=== PATIENT | female | born 1965 | race Caucasian/White ===

== ENCOUNTER → 2020-11-30 08:56 | Outpatient (CLI) | payer OTHER, SELFPAY ==
--- NOTE | ~2020-11-30 | MR_ITS ---
EXAMINATION: MR cervical spine wo con DATE: 11/30/2020 09:38 INDICATION: Neck pain. TECHNIQUE: Magnetic resonance imaging (MRI) of the cervical spine was performed without intravenous c ontrast. Sequences included sagittal T2-weighted FSE, sagittal STIR FSE, sagittal T1-weighted FSE, ax ial MERGE, and axial T2-weighted FSE. COMPARISON: None FINDINGS: Bone alignment is normal. Vertebral body heights are normal. There is moderately decreased disc height at C5-C6 and C6-7 C7 with endplate remodeling. The spinal cord signal intensity is normal . The following disc levels are specifically discussed: C2-C3: The disc does not extend beyond the endplate margin. There is mild left uncovertebral joint os teoarthritis. There is mild bilateral facet joint osteoarthritis. There is no neural foraminal stenos is. There is no central canal stenosis. C3-C4: The disc does not extend beyond the endplate margin. There is no uncovertebral joint osteoarth ritis. There is severe bilateral facet joint osteoarthritis. There is mild left neural foraminal sten osis. There is no central canal stenosis. C4-C5: The disc does not extend beyond the endplate margin. There is mild bilateral uncovertebral deonte nt osteoarthritis. There is severe bilateral facet joint osteoarthritis. There is mild bilateral neur al foraminal stenosis. There is no central canal stenosis. C5-C6: The disc is bulging. There is severe bilateral uncovertebral joint osteoarthritis. There is se micheline bilateral facet joint osteoarthritis. There is mild right neural foraminal stenosis. There is mi ld central canal stenosis. C6-C7: The disc is bulging. There is severe bilateral uncovertebral joint osteoarthritis. There is mo derate bilateral facet joint osteoarthritis. There is mild left neural foraminal stenosis. There is m ild central canal stenosis. C7-T1: The disc does not extend beyond the endplate margin. There is no uncovertebral joint osteoarth ritis. There is severe right and moderate left facet joint osteoarthritis. There is mild bilateral ne ural foraminal stenosis. There is no central canal stenosis. IMPRESSION: 1. Moderate cervical spondylosis. Reviewed, dictated and finalized at location A.
== END ==
PROVIDERS: PCP Internal Medicine; Visit Provider Physician Assistant Medical
DX: M47.892 Other spondylosis, cervical region (principal)
CPT/HCPCS: 72141

== ENCOUNTER 2022-10-17 16:06 | Outpatient (CLI) | payer OTHER, SELFPAY ==
--- NOTE | ~2022-10-17 | CT_ITS ---
EXAMINATION:CT diagnostic chest w con DATE: 10/17/2022 16:42 INDICATION: Lung nodule. TECHNIQUE: Computed tomography (CT) of the chest was performed with 75 mL Omnipaque 350 intravenous c ontrast. Automated exposure control and iterative reconstruction technique were employed. The dose-le ngth product (DLP) was 189.10 mGy-cm. COMPARISON: CT abdomen and pelvis 10/07/2011 FINDINGS: There is mild atelectasis bilaterally. There are multiple scattered nodules in the lungs me asuring up to 5 mm on the right. No pleural effusion. The heart size is normal. No pericardial effusi on. There is a large sliding hiatal hernia. There are changes of cholecystectomy. There is cortical t hinning of the kidneys. There are old healed right rib fractures. There is mild thoracic spondylosis and at least moderate cervical spondylosis. IMPRESSION: 1. Pulmonary nodules measuring up to 5 mm, likely benign. 2. Large sliding hiatal hernia. Reviewed, dictated and finalized at location A. 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
[2022-10-17 16:34] LABS: Estimated Glomerular Filt Rate > 60
== END 2022-10-17 16:07 | disposition home or self-care (01) ==
LOC: ANHIMG 16:07
PROVIDERS: PCP Physician Assistant Medical; Visit Provider Internal Medicine Hematology & Oncology
DX: K44.9 Diaphragmatic hernia without obstruction or gangrene (principal); R91.8 Other nonspecific abnormal finding of lung field
CPT/HCPCS: 71260; Q9967

== ENCOUNTER 2023-02-24 01:47 | Day surgery (SDC) | payer OTHER, SELFPAY ==
[2023-02-19 12:50] VITALS: BMI 28.4
--- NOTE | 2023-02-24 07:37 | WPDANESEPPF ---
Anes - Initial Pre Proc Eval Procedure: Operation Date: 02/24/23 14:00 Proposed Procedures p Colonoscopy - Nathen Bear MD Date/Time: 02/24/23 07:37 Surgeon: Nathen Bear MD Pre Op Diagnosis: positive cologuard Patient Data Age: 57 Gender: F Height: 1.55 m Weight: 68.2 kg Allergies Allergy/AdvReac Type Severity Reaction Status Date / Time lisinopril AdvReac Cough Verified 02/24/23 12:50 Home Medications Medication Instructions Recorded Confirmed Type naproxen 500 mg tablet 500 mg PO BID #60 tabs 12/02/22 02/19/23 Rx levothyroxine 88 mcg tablet 88 mcg PO DAILY #90 tabs 01/13/23 02/19/23 Rx bupropion HCl 150 mg 24 hr tablet, 150 mg PO QAM #90 tabs 01/22/23 02/19/23 Rx extended release (Wellbutrin XL) cyclobenzaprine 5 mg tablet See Rx Instructions PO Q8H PRN 01/22/23 02/19/23 Rx muscle spasm #20 tabs hydroxyzine HCl 25 mg tablet 25 mg PO BID PRN anxiety #60 tabs 01/22/23 02/19/23 Rx escitalopram oxalate 20 mg tablet 20 mg PO DAILY #90 tabs 02/13/23 02/19/23 Rx (Lexapro) Calcium 600 + D(3) 1 tab-cap PO DAILY 02/19/23 02/19/23 History Vitamin D3 10,000 units PO DAILY 02/19/23 02/19/23 History cyanocobalamin (vitamin B-12) 1,000 mcg PO DAILY 02/19/23 02/19/23 History 1,000 mcg capsule magnesium 200 mg tablet 200 mg PO DAILY 02/19/23 02/19/23 History omeprazole magnesium 20 mg 20 mg PO DAILY 02/19/23 02/19/23 History tablet,delayed release (Prilosec OTC) losartan 50 mg tablet 50 mg PO DAILY #90 tabs 02/27/23 Rx metoprolol succinate 25 mg 25 mg PO DAILY #90 tabs 02/27/23 Rx tablet,extended release 24 hr Patient hx anesthesia problems: none Family hx anesthesia problems: none Results Review: All pre-operative results and documents have been reviewed as part of the pre-operative evaluation. [facility] Past Medical History Medical History (Updated 02/21/23 @ 15:00 by Hamzah Pace DO) Anxiety Axillary lymphadenopathy left, noted on CT Breast cancer screening by mammogram Cervicalgia of cfsathgz-eseopdy-jhdeu region Depression GERD (gastroesophageal reflux disease) Hypertension Hypothyroidism Rheumatoid arthritis Surgical History Surgical History (Updated 02/21/23 @ 15:00 by Hamzah Pace DO) History of cholecystectomy Social History Social History Smoking status: Never smoker Alcohol intake: current Alcohol use details: social Substance use: never Substance use type: does not use Living arrangements: with family Occupation/Education: occupation Gender identity (if verbalized by the patient): Female Spiritual care concerns: No Anes - Eval Final PreProcedure Day of Procedure 02/24/23 07:37 Patient weight: overweight Heart: regular rate and rhythm Lungs: clear to auscultation Airway: Mallampati scale class II Neurological: alert and oriented Last oral intake: >/= 8 hours ASA classification: III Emergent: no Anesthetic plan: proceed Anesthesia type and monitoring: general GIVS and standard monitoring Results Review: All pre-operative results and documents have been reviewed as part of the pre-operative evaluation. Informed Consent: The patient's anesthetic plan and its attendant risks and benefits were discussed with the patient/family/POA. Questions were solicited and answers provided to the satisfaction of the patient/family/POA.
[2023-02-24] MEDS: LACTATED RINGERS 1,000 ML 150 ML IV CONT (12:57)
[2023-02-24 12:58] VITALS: BP 131/97; PULSE 93; RESP 16; TEMP 36.8; O2SAT 97
--- NOTE | 2023-02-24 13:01 | PM.HPGS ---
History of Present Illness History of Present Illness Consent: Risks, benefits, and alternatives have been discussed and questions answered. Patient agrees to proceed with procedure. Chief complaint: positive cologuard Narrative: Cindy Woodard is a 57 year old female Presents for screening colonoscopy. Patient's current weight appetite bowel movements are normal. She denies abdominal pain. Patient has had no bleeding. Family history noncontributory. Recent Cologuard test was performed and found to be positive. [facility] Past Medical History Medical History (Updated 02/21/23 @ 15:00 by Hamzah Pace DO) Anxiety Axillary lymphadenopathy left, noted on CT Breast cancer screening by mammogram Cervicalgia of ofnxzhpo-qlxkaqc-ycbam region Depression GERD (gastroesophageal reflux disease) Hypertension Hypothyroidism Rheumatoid arthritis Surgical History Surgical History (Updated 02/21/23 @ 15:00 by Hamzah Pace DO) History of cholecystectomy Social History Social History Smoking status: Never smoker Alcohol intake: current Alcohol use details: social Substance use: never Substance use type: does not use Living arrangements: with family Occupation/Education: occupation Gender identity (if verbalized by the patient): Female Spiritual care concerns: No Meds Home Medications and Allergies Home Medications Medication Instructions Recorded Confirmed Type losartan 50 mg tablet 50 mg PO DAILY #90 tabs 09/02/22 02/19/23 Rx metoprolol succinate 25 mg 25 mg PO DAILY #90 tabs 09/02/22 02/19/23 Rx tablet,extended release 24 hr naproxen 500 mg tablet 500 mg PO BID #60 tabs 12/02/22 02/19/23 Rx levothyroxine 88 mcg tablet 88 mcg PO DAILY #90 tabs 01/13/23 02/19/23 Rx bupropion HCl 150 mg 24 hr tablet, 150 mg PO QAM #90 tabs 01/22/23 02/19/23 Rx extended release (Wellbutrin XL) cyclobenzaprine 5 mg tablet See Rx Instructions PO Q8H PRN 01/22/23 02/19/23 Rx muscle spasm #20 tabs hydroxyzine HCl 25 mg tablet 25 mg PO BID PRN anxiety #60 tabs 01/22/23 02/19/23 Rx escitalopram oxalate 20 mg tablet 20 mg PO DAILY #90 tabs 02/13/23 02/19/23 Rx (Lexapro) Calcium 600 + D(3) 1 tab-cap PO DAILY 02/19/23 02/19/23 History Vitamin D3 10,000 units PO DAILY 02/19/23 02/19/23 History cyanocobalamin (vitamin B-12) 1,000 mcg PO DAILY 02/19/23 02/19/23 History 1,000 mcg capsule magnesium 200 mg tablet 200 mg PO DAILY 02/19/23 02/19/23 History omeprazole magnesium 20 mg 20 mg PO DAILY 02/19/23 02/19/23 History tablet,delayed release (Prilosec OTC) Allergies Allergy/AdvReac Type Severity Reaction Status Date / Time lisinopril AdvReac Cough Verified 02/24/23 12:50 Vital Signs Vital Signs - 24 hr 02/24/23 12:58 Temperature 98.2 F Pulse Rate 93 Respiratory Rate 16 Blood Pressure 131/97 H Pulse Oximetry 97 Oxygen Delivery Room Air Exam Narrative: Physical exam reveals patient to be alert. Vital signs stable. HEENT exam is unremarkable. Patient is anicteric. Lungs are clear to auscultation and percussion. Heart is without murmur or extra sounds. Abdomen bowel sounds are present soft nontender with no organomegaly. Digital external rectal exam normal. Assessment and Plan Assessment and plan (1) Positive colorectal cancer screening using Cologuard test: Code(s): R19.5 - Other fecal abnormalities Status: Acute Assessment and Plan: Patient's Cologuard test was positive. Plan for screening colonoscopy to assess. Further recommendations may be given after endoscopy.
[2023-02-24] MEDS: SIMETHICONE ORAL SUSPENSION 20 MG/0.3 ML 30 ML BOTTLE 0.6 ML IRRIGATION (14:17)
[2023-02-24 14:27] VITALS: BP 134/87; PULSE 87; RESP 23; O2SAT 100
[2023-02-24 14:37] VITALS: BP 128/85; PULSE 87; RESP 23; O2SAT 100
[2023-02-24 14:47] VITALS: BP 137/87; PULSE 78; RESP 18; O2SAT 100
== END 2023-02-24 15:00 | disposition home or self-care (01) ==
PROVIDERS: PCP Physician Assistant Medical; Visit Provider Internal Medicine Gastroenterology
PROC: 0DJD8ZZ Inspection of Lower Intestinal Tract, Via Natural or Artificial Opening Endoscopic (ICD-10-PCS; CPT 45378; principal; 2023-02-24 14:00)
DX: Z12.11 Encounter for screening for malignant neoplasm of colon (principal); K64.8 Other hemorrhoids; R19.5 Other fecal abnormalities; I10 Essential (primary) hypertension; E03.9 Hypothyroidism, unspecified; M06.9 Rheumatoid arthritis, unspecified; F32.A Depression, unspecified; F41.9 Anxiety disorder, unspecified; K21.9 Gastro-esophageal reflux disease without esophagitis
CPT/HCPCS: 45378; J2704; J7120

== ENCOUNTER 2024-11-30 10:21 | Outpatient (CLI) | payer OTHER, SELFPAY ==
--- NOTE | ~2024-11-30 | US_ITS ---
EXAMINATION: US_BCALIMG_US DATE: 11/30/2024 12:09 INDICATION: Aspiration requested of a and cystic lesion at the left axilla. TECHNIQUE: The procedure including the risks and benefits was discussed with the patient. Risks discu ssed included bleeding bleeding, infection and allergic reaction oral and written consent were obtain ed. The skin overlying the left axilla was prepped and draped in usual sterile fashion. Anesthetic w as administered with 1% lidocaine subcutaneously. Initially a 5Fr catheter with trochar was inserted into the fluid collection utilizing ultrasound guidance. A minimal amount of fluid was able to be asp irated. The catheter was removed and a 18 Fr spinal needle was advanced into the fluid collection wit h ultrasound guidance. A small amount of opaque yellowish callahan-colored fluid was aspirated and sent to lab for Gram stain and cultures. The needle was removed and a sterile bandage was applied. There wer e no immediate complications. FINDINGS: There is a 6.2 x 1.2 x 2.1 cm anechoic fluid collection at the left axilla. There are a few adjacent mildly prominent but still normal-sized and likely reactive left axillary lymph nodes measu ring up to 1 cm in maximal short axis diameter. Ultrasound images demonstrate the initially the nikolas ter and subsequently the 18-gauge needle tip within the fluid collection. The fluid was very viscous and only 3 mL was able to be aspirated. IMPRESSION: 1. Successful ultrasound-guided aspiration of a portion of 6.2 x 1.2 x 2.1 cm loculated left axillary fluid collection. 2. 3 mL of purulent appearing opaque yellowish aspirated fluid was sent to the lab for Gram stain and cultures. Reviewed, dictated and finalized at location A. IMPRESSION: 1. Successful ultrasound-guided aspiration of a portion of 6.2 x 1.2 x 2.1 cm l oculated left axillary fluid collection. 2. 3 mL of purulent appearing opaque yellowish aspirated fluid was sent to the lab for Gram stain and cultures.
--- OUTSIDE RECORDS SUMMARY | 2024-11-30 11:42 | XMS_ITS | Clinical Summary ---
Author Organization [facility] Address [address] [address] Care Team Providers Care Collar Fuser Name Role Phone Jaden Carter MD Primary Care Provider [phone] Allergies No known active allergies Medications buPROPion XL (WELLBUTRIN XL) 150 mg 24 hr tabletIndicatio ns:Anxiety with Depression Take 1 tablet (150 mg total) by mouth every morning 1 Active cyanocobalamin (Vitamin B-12) 100 mcg tabletIndicatio ns:Prevention of Vitamin B12 Deficiency Take 250 mcg by mouth every morning Active folic acid (FOLVITE) 1 mg tabletIndicatio ns:supplement Take 1 tablet (1 mg total) by mouth every morning 7 Active levothyroxine (SYNTHROID) 88 mcg tabletIndicatio ns:hypothyroidi sm Take 1 tablet (88 mcg total) by mouth 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 Active metoprolol XL (TOPROL-XL) 25 mg extended release tabletIndicatio ns:hypertension Take 1 tablet (25 mg total) by mouth every morning Active cholecalciferol (VITAMIN D-3) 25 mcg (1,000 unit) tabletIndicatio ns:Vitamin D Deficiency Take 1 tablet (1,000 Units total) by mouth every morning Active docusate sodium (COLACE) 100 mg capsuleIndicati ons:constipatio n Take 1 capsule (100 mg total) by mouth 2 (two) times a day HOLD if having diarrhea or loose stools 30 capsule 1 1 Active Additional Information Patient not taking.Reported on 07/23/2021 desvenlafaxine ER 50 mg 24 hr tablet 1 Active hydrOXYzine (VISTARIL) 25 mg capsule daily as needed 1 Active mupirocin (BACTROBAN) 2 % ointmentIndicat ions:Multiple wounds of skin Apply topically 2 (two) times a day 22 g 4 Active Active Problems Problem Noted Date Diagnosed Date Left shoulder pain 12/11/2020 Traumatic complete tear of left rotator cuff Overview (12/11/2020): Added automatically from request for surgery [id number] External hemorrhoids 03/24/2017 Rash and other nonspecific skin eruption 015 Rheumatoid arthritis 06/29/2015 Overview (02/05/2021): Seropositive, non erosive Other specified disorders of bone density and structure, unspecified site 08/15/2014 Other long term care phlebotomist (current) drug therapy 4 Rheumatoid nodule 04/11/2014 Hypothyroidism 12/07/2013 Encounter for therapeutic drug level monitoring 05/18/2013 Osteoarthritis 08/24/2012 Overview (02/05/2021): OA of the cervical spine and bilateral shoulders Surgical History Surgery Date Site/Laterality Comments CHOLECYSTECTOMY 09/15/2005 - 09/14/2006 ROTATOR CUFF REPAIR Medical History Medical History Date Comments Depression Hypothyroid HTN (hypertension) Family History Medical History Relation Name Comments Alcohol abuse Father Cancer Mother Diabetes Mother Heart disease Mother Hypertension Mother Lung disease Mother Family history of lung disease - (Added by TW Conv) Mental illness Son Anesthesia problems Neg Hx Relation Name Status Comments Father Mother Son Social History Tobacco Use Types Packs/Day Years Used Date Smoking Tobacco: Never Smokeless Tobacco: Never AUDIT-C Answer Date Recorded Q1: How often do you have a drink containing alc ohol? 2-4 times a month 12/12/2020 Q2: How many drinks containi ng alcohol do you have on a typical day when you are drinking? 1 or 2 12/12/2020 Q3: How often do you have si x or more drinks on one occasion? 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 Not on file Not on file Obstetrics History Last Filed Vital Signs Vital Sign Reading Time Taken Comments Blood Pressure 146/78 05/18/2024 12:39 PM CDT Pulse 76 05/18/2024 12:39 PM CDT Temperature 36.9 C (98.4 F) 05/18/2024 12:39 PM CDT Respiratory Rate 20 05/18/2024 12:39 PM CDT Oxygen Saturation 98% 05/18/2024 12:39 PM CDT Inhaled Oxygen Concentration - - Weight 80.4 kg (177 lb 4.8 oz) 05/18/2024 12:39 PM CDT Height 165.1 cm (5' 5 ) 05/18/2024 12:39 PM CDT Body Mass Index 29.5 05/18/2024 12:39 PM CDT Plan of Treatment Health Maintenance Due Date Last Done Comments Cervical Cancer Screening 1964 Colon Cancer Screening-Colonoscopy 1964 Depression Screening 1964 Hepatitis C Screening 1964 Hepatitis B Screening 1982 Regular Well Visit/Exam 18-64 1982 Zoster Vaccine (1 of 2) 2014 Breast Cancer Screening-Mammogram 06/26/2023 06/26/2022, 06/26/2022 Influenza Vaccine (#1) 2024 06/26/2015 DTaP/Tdap/Td Vaccine (2 - Td or Tdap) 06/28/2026 06/28/2016 Pneumococcal vaccine <65 Aged Out No longer eligible based on patient's age to complete this topic Medical Devices Implanted Type Area Barber Stylist Device Identifier Shelf Expiration Date Model / Serial / Lot [employer] [id number] [place] Suture Compositcp Broadband Od4.5mm 2 Load Slide Tape Knotless Thread - [id number] Implanted:Qty: 1 on 12/26/2020 by Jens Cook MD at [facility] Left: Shoulder [employer] 03/15/2021 [id number] / / [id number] [employer] [id number] [place] Suture Compositcp Broadband Od4.5mm 2 Load Slide Tape Knotless Thread - [id number] Implanted:Qty: 1 on 12/26/2020 by Jens Cook MD at [facility] Left: Shoulder [employer] 03/15/2021 [id number] / / [id number] [employer] [id number] Quattro Link 4.5mm 1 Row Knotless Self Punch Unique Eyelet [place] - S00 - [id number] Implanted:Qty: 1 on 12/26/2020 by Jens Cook MD at [facility] Left: Shoulder [employer] 12/30/2024 [id number] / 00 / [id number] [employer] [id number] Quattro Link 4.5mm 1 Row Knotless Self Punch Unique Eyelet [place] - S00 - [id number] Implanted:Qty: 1 on 12/26/2020 by Jens Cook MD at [facility] Left: Shoulder [employer] 12/30/2024 [id number] / 00 [id number] [employer] [id number] Jugger[employer]not Maxbraid 2.9mm 2 Loaded Soft Tapered Needle 2 [place] - S00 - [id number] Implanted:Qty: 1 on 12/26/2020 by Jens Cook MD at [facility] Left: Shoulder [employer] 06/07/2025 [id number] / 00 / [id number] [place] [address] [facility] PPO [facility] [address] PPO Care Teams Collar Fuser Relationship Specialty Start Date End Date Jaden Carter MD [address] [place], [place] [id number] PCP - General Internal Medicine 12/04/20
--- OUTSIDE RECORDS SUMMARY | 2024-11-30 11:42 | XMS_ITS | Clinical Summary ---
Author Organization [facility] Tony Lopez Address [address] [place] [address] Care Team Providers Care Web Applications Developer Name Role Phone Unavailable Primary Care Provider Unavailabl e Medications metoprolol succinate (TOPROL XL) 25 mg Extended Release 24 hour tablet TAKE 1/2 (ONE-HALF) TABLET BY MOUTH ONCE DAILY IN THE MORNING AND 1 AT BEDTIME 2 Active levothyroxine 88 mcg tablet TAKE 1 TABLET BY MOUTH ONCE DAILY ONE HOUR BEFORE BREAKFAST 2 Active losartan (COZAAR) 50 mg tablet Take 50 mg by mouth daily. 2 Active escitalopram oxalate (LEXAPRO) 10 mg tablet Take 10 mg by mouth daily. 2 Active buPROPion HCL (WELLBUTRIN XL) 150 mg Extended Release 24 hour tablet Take 150 mg by mouth. 1 Active naproxen (NAPROSYN) 500 mg tablet Take 500 mg by mouth 2 times daily. 2 Active cyclobenzaprine (FLEXERIL) 10 mg tablet Take 10 mg by mouth 3 times daily as needed for Spasm. Active Active Problems No known active problems Social History Tobacco Use Types Packs/Day Years Used Date Smoking Tobacco: Never Smokeless Tobacco: Never Tobacco Cessation:Counseling Given: Not Answered Alcohol Use Standard Drinks/Week Comments Yes 2 (1 standard drink = 0.6 oz pur e alcohol) Comments Unknown Sex and Gender Information Value Date Recorded Sex Assigned at Not on file Legal Sex Female 9:28 AM CDT Gender Identity Not on file Sexual Orientation Not on file Last Filed Vital Signs Vital Sign Reading Time Taken Comments Blood Pressure 146/93 07/12/2022 1:31 PM CDT Pulse 65 07/12/2022 1:31 PM CDT Temperature 36.6 C (97.8 F) 07/12/2022 1:31 PM CDT Respiratory Rate 16 07/12/2022 1:31 PM CDT Oxygen Saturation 95% 07/12/2022 1:31 PM CDT Inhaled Oxygen Concentration - - Weight 75.5 kg (166 lb 8 oz) 07/12/2022 1:31 PM CDT Height 157.5 cm (5' 2 ) 07/12/2022 1:31 PM CDT Body Mass Index 30.45 07/12/2022 1:31 PM CDT Plan of Treatment Health Maintenance Due Date Last Done Comments DTAP/TDAP/TD VACCINES (1 - Tdap) 1983 CERVICAL CANCER SCREENING 1994 BREAST CANCER SCREENING 2004 COLORECTAL SCREENING 2009 Colorectal Cancer Screening 2009 FIT-DNA Q 3 years 2009 FIT/FOBT Q 1 year 2009 Flex Sig/CT Colonography Q 5 years 2009 ZOSTER VACCINE (1 of 2) 2014 INFLUENZA VACCINE (#1) 2024 06/26/2015 COVID-19 Vaccine (2 - 2023-2 5 season) 2024 09/26/2021 RSV VACCINE (60+ or ) (1 - 1-dose 75+ series) 2039 HEPATITIS B VACCINES Aged Out No long er eligible based on patient's age to complete this topic Insurance
--- OUTSIDE RECORDS SUMMARY | 2024-11-30 11:42 | XMS_ITS | Encounter Summary ---
Author Organization [facility] Healthcare Address [address] [place] [address] Care Team Providers Care Sales Teacher Name Role Phone Unknown, Beverlynfnoé Primary Care Provider Jaden Sepulveda MD Primary Care Provider [phone] Encounter Details Date Type Department Care Team (Late st Contact Info) Description 10/18/2020 Telephone [facility] [id number] [place] [address] Sushila Marley, RT Social History Tobacco Use Types Packs/Day Years Used Date Smoking Tobacco: Never Comments Unknown Sex and Gender Information Value Date Recorded Sex Assigned at Not on file 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 04/16/2022 04/17/2022 08/14/2022 3:[address] COVID: Suspected 07/30/2022 07/31/2022 07/31/2022 3:05 AM MAINTENANCE DEPARTMENT MANAGER COVID: Suspected 07/31/2022 07/31/2022 08/01/2022 3:05 AM MAINTENANCE DEPARTMENT MANAGER COVID: Suspected 07/31/2022 07/31/2022 08/01/2022 5:48 AM MAINTENANCE DEPARTMENT MANAGER documented as of this encounter Care Teams Sales Teacher Relationship Specialty Start Date End Date Unknown, Notinfile PCP - General 07/10/17 12/03/20 Jaden Carter MD [address] [place] [id number] PCP - General Internal Medicine 12/04/20 documented as of this encounter
--- OUTSIDE RECORDS SUMMARY | 2024-11-30 11:42 | XMS_ITS | Clinical Summary ---
Author Organization [facility] Address [address] [place] [address] Care Team Providers Care Loader Name Role Phone Jaden Carter MD Primary Care Provider [phone] Source Comments [facility],non-owned Affiliates and Associated Physician Practices is amultiple site organization consisting of ambulatory clinics and hospital sitesin [place], [place], [place] and [place]. This disclosure is being madepursuant to the Care Everywhere program and may not contain all information available regarding this patient. Last updated 18.[facility] Allergies No known active allergies Medications * Be aware that medications may not be up to date on this document. Alwaysverify current medications with the patient. Medication Sig Dispensed Refills Start Date End Date Status naproxen (NAPROSYN) 500 MG tablet 60 tablet 3 06/12/2016 Active buPROPion XL 24hr (Wellbutrin-XL) 150 MG tablet Take 1 (one) tablet by mouth every morning 01/22/2023 Active escitalopram (Lexapro) 20 MG tablet Take 1 (one) tablet by mouth once daily 02/13/2023 Active metoprolol succinate XL 24hr (Toprol XL) 25 MG tablet Take 1 (one) tablet by mouth once daily 02/27/2023 Active losartan (Cozaar) 50 MG tablet Take 1 (one) tablet by mouth once daily 02/27/2023 Active levothyroxine (Synthroid) 88 MCG tablet Take 1 (one) tablet by mouth once daily 01/13/2023 Active Cholecalciferol (Vitamin D3) 250 MCG (10522 UT) Take 250 mg by mouth once daily Active Magnesium 200 MG TABS Take 200 mg by mouth once daily Active Calcium Carb-Cholecalcifero l (Calcium 600+D) 600-10 MG-MCG Take 1 (one) tablet by mouth 2 times daily Active OMEPRAZOLE PO Take 20 mg by mouth once daily Active folic acid (Folvite) 1 MG tablet Take 1 (one) tablet by mouth once daily 90 tablet 4 04/06/2024 Active methotrexate 2.5 MG tablet Take 1 (one) tablet by mouth every 7 days 6 Tablets once a week Active diclofenac sodium EC (Voltaren) 75 MG tablet Take 1 (one) tablet by mouth 2 times daily 180 tablet 1 09/21/2024 03/20/2025 Active Active Problems Problem Noted Date Diagnosed Date Rheumatoid arthritis 06/29/2015 Overview (12/15/2017): Seropositive, non erosive Rash and other nonspecific skin eruption 015 Other specified disorders of bone density and structure, unspecified site 08/15/2014 Rheumatoid nodule 04/11/2014 Other intermission coordinator (current) drug therapy 4 Hypothyroidism 12/07/2013 Encounter for therapeutic drug level monitoring 05/18/2013 Osteoarthritis 08/24/2012 Overview (12/15/2017): OA of the cervical spine and bilateral shoulders Encounters Date Type Department Care Team Description 10/22/2024 Orders Only [facility] - Rheumatology [address] [place] [address] Christiano Castanon MD Rheumatoid arthritis involving multiple joints (HCC); Therapeutic drug monitoring 09/28/2024 Lab Requisition [facility] - DermPath Lab [address] [place] [address] Gala Venegas MD 09/25/2024 11:14 AM CHEMICAL ETCH OPERATOR - 09/25/2024 11:59 PM CHEMICAL ETCH OPERATOR Hospital Encounter [facility] MRI [address] [place] [address] Omi Shelby MD Discharge Disposition: Home or Self Care 09/25/2024 11:14 AM CHEMICAL ETCH OPERATOR - 09/25/2024 11:59 PM CHEMICAL ETCH OPERATOR Hospital Encounter [facility] MRI [address] [place] [address] Omi Shelby MD Discharge Disposition: Home or Self Care 09/25/2024 Travel 09/21/2024 4:18 PM CHEMICAL ETCH OPERATOR - 09/21/2024 11:59 PM CHEMICAL ETCH OPERATOR Hospital Encounter [facility] DIAGNOSTIC RAD OP [address] [place] [address] Christiano Castanon MD Discharge Disposition: Home or Self Care 09/21/2024 3:20 PM CHEMICAL ETCH OPERATOR Office Visit [facility] - Rheumatology [address] [place] [phone] Christiano Castanon MD Rheumatoid arthritis involving multiple joints (HCC) (Primary Dx); Osteoarthritis of hand, unspecified laterality, unspecified osteoarthritis type; Therapeutic drug monitoring 09/21/2024 Travel 09/17/2024 Telephone [facility] - Rheumatology [address] [place] [phone] Christiano Castanon MD Pain 09/17/2024 Telephone [facility] - Rheumatology [address] [place] [phone] Jasbir Sofia MD Pain 09/17/2024 Telephone [facility] - Rheumatology [address] [place] [phone] Jasbir Sofia MD General 09/13/2024 12:42 PM CHEMICAL ETCH OPERATOR - 09/13/2024 11:59 PM CHEMICAL ETCH OPERATOR Hospital Encounter [facility] [address] [place] [address], [address] [place] [address] Omi Shelby MD Neurology Discharge Disposition: Home or Self Care 09/01/2024 2:00 PM CHEMICAL ETCH OPERATOR Office Visit [facility] [address] [place] [address] [address] [place] [address] Wang Herrera MD Singh, Niranjan N, MD Neck pain (Primary Dx); Ataxia; Weakness of right hand from Last 3 Months Immunizations Name Administration Dates Next Due INFLUENZA VACCINE, TRIV. (AF LURIA, FLUZONE TRIVALENT; 6MO+) (IIV3) 06/26/2015 Family History Medical History Relation Name Comments Arthritis - Rheumatoid Maternal Grandmother Cancer Maternal Grandmother COPD - Chronic Obstructive Pulmonary Disease Mother Cancer Mother Depression Mother Diabetes Mother Early Mother Heart Disease Mother Hypertension Mother Relation Name Status Comments Maternal Grandmother Mother Social History Tobacco Use Types Packs/Day Years Used Date Smoking Tobacco: Never Smokeless Tobacco: Never Tobacco Cessation:Counseling Given: Not Answered Alcohol Use Standard Drinks/Week Comments Yes 0 (1 standard drink = 0.6 oz pur e alcohol) PHQ-2 Answer Date Recorded Patient Health Questionnaire-2 Score 3 09/21/2024 Sex and Gender Information Value Date Recorded Sex Assigned at Not on file Gender Identity Female 03/29/2024 2:36 PM CDT Sexual Orientation Not on file Last Filed Vital Signs Vital Sign Reading Time Taken Comments Blood Pressure 135/89 09/21/2024 3:37 PM CHEMICAL ETCH OPERATOR Pulse 81 09/21/2024 3:37 PM CHEMICAL ETCH OPERATOR Temperature 36.8 C (98.2 F) 09/21/2024 3:37 PM CHEMICAL ETCH OPERATOR Respiratory Rate 18 07/09/2016 2:42 PM CDT Oxygen Saturation 96% 09/21/2024 3:37 PM CHEMICAL ETCH OPERATOR Inhaled Oxygen Concentration - - Weight 80.7 kg (178 lb) 09/21/2024 3:37 PM CHEMICAL ETCH OPERATOR Height 157.5 cm (5' 2 ) 09/21/2024 3:37 PM CHEMICAL ETCH OPERATOR Body Mass Index 32.56 09/21/2024 3:37 PM CHEMICAL ETCH OPERATOR Plan of Treatment Upcoming Encounters Date Type Department Care Team (Late st Contact Info) Description 12/13/2024 1:00 PM CDT Office Visit [facility] - Rheumatology [address] [place] [address], [place] [phone] Jasbir Sofia MD [address] [place] [address] [place] [phone] Health Maintenance Due Date Last Done Comments COLOGUARD (AGES 45-75) - COLON CA SCREENING 1964 COLON MONITORING 1964 COLONOSCOPY - COLON CA SCREENING 1964 CT COLONOGRAPHY - COLON CA SCREENING 1964 Colorectal Cancer Screening 1964 FIT - COLON CA SCREENING 1964 FLEX SIG - COLON CA SCREENING 1964 LIPID TESTING 1964 PAP SMEAR 1964 HIV SCREENING 1979 DTAP/TDAP/TD VACCINES (1 - Tdap) 1983 PNEUMOCOCCAL VACCINE 50+ (1 of 1 - PCV) 2014 ZOSTER VACCINE (1 of 2) 2014 COVID-19 VACCINE (2 - season) 2024 09/26/2021 INFLUENZA VACCINE (#1) 2024 06/26/2015 Respiratory Syncytial Virus (RSV) Vaccine Pt: or over 60 yrs (1 - Risk 60-74 years 1-dose series) 2024 MAMMOGRAM 06/26/2024 06/26/2022, 06/26/2022 SCREENING FOR DIABETES 11/02/2027 , 09/22/2024, 09/06/2024, Additional history exists HEPATITIS C SCREENING Completed 04/03/2023, 012 DEPRESSION SCREENING Completed 09/21/2024, 03/29/2024, 04/03/2023 HEPATITIS B VACCINE Aged Out No longe r eligible based on patient's age to complete this topic HIB VACCINE Aged Out No longer eligi ble based on patient's age to complete this topic HPV VACCINE Aged Out No longer eligi ble based on patient's age to complete this topic MENINGOCOCCAL (Group B) VACCINE SHARED DECISION-MAKING Aged Out No longer eligible based on patient's age to complete this topic MENINGOCOCCAL GROUPS A/C/Y/W VACCINE Aged Out No longer eligible based on patient's age to complete this topic Procedures Procedure Name Priority Date/Time Associated Diagnosis Comments ERYTHROCYTE SEDIMENTATION RATE Routine 11/02/2024 1:58 PM CHEMICAL ETCH OPERATOR Rheumatoid arthritis involving multiple joints (HCC) Therapeutic drug monitoring C-REACTIVE PROTEIN Routine 11/02/2024 1: 58 PM CHEMICAL ETCH OPERATOR Rheumatoid arthritis involving multiple joints (HCC) Therapeutic drug monitoring COMPREHENSIVE METABOLIC PANEL Routine 11/02/2024 1:58 PM CHEMICAL ETCH OPERATOR Rheumatoid arthritis involving multiple joints (HCC) Therapeutic drug monitoring CBC W AUTO DIFFERENTIAL Routine 11/02/2024 1:58 PM CHEMICAL ETCH OPERATOR Rheumatoid arthritis involving multiple joints (HCC) Therapeutic drug monitoring DERMATOPATHOLOGY Routine 09/28/2024 1:58 PM CHEMICAL ETCH OPERATOR MRI THORACIC SPINE WO CONTRAST Routine 09/25/2024 1:17 PM CHEMICAL ETCH OPERATOR Ataxia Neck pain MRI BRAIN WO CONTRAST Routine 09/25/2024 1:16 PM CHEMICAL ETCH OPERATOR Ataxia Neck pain URINALYSIS W/MICROSCOPIC NO CULTURE Routine 09/22/2024 11:45 AM CHEMICAL ETCH OPERATOR Rheumatoid arthritis involving multiple joints (HCC) Therapeutic drug monitoring ERYTHROCYTE SEDIMENTATION RATE Routine 09/22/2024 11:45 AM CHEMICAL ETCH OPERATOR Rheumatoid arthritis involving multiple joints (HCC) Therapeutic drug monitoring C-REACTIVE PROTEIN Routine 09/22/2024 11:45 AM CHEMICAL ETCH OPERATOR Rheumatoid arthritis involving multiple joints (HCC) Therapeutic drug monitoring PROTEIN ELECTROPHORESIS BLOOD Routine 09/22/2024 11:45 AM CHEMICAL ETCH OPERATOR Rheumatoid arthritis involving multiple joints (HCC) Therapeutic drug monitoring COMPREHENSIVE METABOLIC PANEL Routine 09/22/2024 11:45 AM CHEMICAL ETCH OPERATOR Rheumatoid arthritis involving multiple joints (HCC) Therapeutic drug monitoring CK BLOOD Routine 09/22/2024 11:45 AM CHEMICAL ETCH OPERATOR Rheumatoid arthritis involving multiple joints (HCC) Therapeutic drug monitoring CBC W AUTO DIFFERENTIAL Routine 09/22/2024 11:45 AM CHEMICAL ETCH OPERATOR Rheumatoid arthritis involving multiple joints (HCC) Therapeutic drug monitoring ALDOLASE Routine 09/22/2024 11:45 AM CHEMICAL ETCH OPERATOR Rheumatoid arthritis involving multiple joints (HCC) Therapeutic drug monitoring XR WRIST RIGHT 2VW Routine 09/21/2024 4: 26 PM CHEMICAL ETCH OPERATOR Rheumatoid arthritis involving multiple joints (HCC) Osteoarthritis of hand, unspecified laterality, unspecified osteoarthritis type XR WRIST LEFT 2VW Routine 09/21/2024 4:2 6 PM CHEMICAL ETCH OPERATOR Rheumatoid arthritis involving multiple joints (HCC) Osteoarthritis of hand, unspecified laterality, unspecified osteoarthritis type XR HAND RIGHT 2VW Routine 09/21/2024 4:2 6 PM CHEMICAL ETCH OPERATOR Rheumatoid arthritis involving multiple joints (HCC) Osteoarthritis of hand, unspecified laterality, unspecified osteoarthritis type XR HAND LEFT 2VW Routine 09/21/2024 4:26 PM CHEMICAL ETCH OPERATOR Rheumatoid arthritis involving multiple joints (HCC) Osteoarthritis of hand, unspecified laterality, unspecified osteoarthritis type XR FOOT LEFT 2VW Routine 09/21/2024 4:26 PM CHEMICAL ETCH OPERATOR Rheumatoid arthritis involving multiple joints (HCC) Osteoarthritis of hand, unspecified laterality, unspecified osteoarthritis type XR FOOT RIGHT 2VW Routine 09/21/2024 4:2 6 PM CHEMICAL ETCH OPERATOR Rheumatoid arthritis involving multiple joints (HCC) Osteoarthritis of hand, unspecified laterality, unspecified osteoarthritis type EMG Routine 09/13/2024 11:59 PM CHEMICAL ETCH OPERATOR Ataxia Neck pain COPPER BLOOD Routine 09/13/2024 2:11 PM CHEMICAL ETCH OPERATOR Ataxia Neck pain VITAMIN B12 Routine 09/13/2024 2:10 PM CHEMICAL ETCH OPERATOR Ataxia Neck pain ERYTHROCYTE SEDIMENTATION RATE Routine 09/06/2024 1:56 PM CHEMICAL ETCH OPERATOR Rheumatoid arthritis involving multiple joints (HCC) Therapeutic drug monitoring C-REACTIVE PROTEIN Routine 09/06/2024 1: 56 PM CHEMICAL ETCH OPERATOR Rheumatoid arthritis involving multiple joints (HCC) Therapeutic drug monitoring COMPREHENSIVE METABOLIC PANEL Routine 09/06/2024 1:56 PM CHEMICAL ETCH OPERATOR Rheumatoid arthritis involving multiple joints (HCC) Therapeutic drug monitoring CBC W AUTO DIFFERENTIAL Routine 09/06/2024 1:56 PM CHEMICAL ETCH OPERATOR Rheumatoid arthritis involving multiple joints (HCC) Therapeutic drug monitoring HEPATITIS C ANTIBODY Routine 04/03/2023 12:16 PM CDT Seropositive rheumatoid arthritis (HCC) Therapeutic drug monitoring Screening for tuberculosis group home current use of immunosuppressive drug Osteopenia, unspecified location from Last 3 Months or Most Recently Relevant to Health Maintenance Results * (ABNORMAL) C-REACTIVE PROTEIN (11/02/2024 1:58 PM CHEMICAL ETCH OPERATOR) Only the most recent of3 resultswithin the time period is included. Pathologist [facility] C-Reactive Protein 21.1(H) <8.0 mg/L [facility] Comment: REPORT COMMENT: FASTING:YES Test Performed at: [facility] [id number] [place] [address] JENIFER SANCHEZ MD Blood BLOOD SPECIMEN / Unknown 11/02/2024 1:58 PM CHEMICAL ETCH OPERATOR 11/02/2024 1:58 PM CHEMICAL ETCH OPERATOR Christiano Castanon MD LAB - CHEMISTRY DIAN SOTO Performing Organization Address [facility] Co de Phone Number [facility] [address] [place] [address] * (ABNORMAL) ERYTHROCYTE SEDIMENTATION RATE (11/02/2024 1:58 PM CHEMICAL ETCH OPERATOR) Only the most recent of3 resultswithin the time period is included. [facility] Erythrocyte Sedimentation Rate Westergren 33(H) < OR = 30 mm/h [facility] Comment: Test Performed at: [facility] [id number] [place] [address] JENIFER SANCHEZ MD Blood BLOOD SPECIMEN / Unknown 11/02/2024 1:58 PM CHEMICAL ETCH OPERATOR 11/02/2024 1:58 PM CHEMICAL ETCH OPERATOR Christiano Castanon MD LAB - HEMATOLOGY ORD ZOILA Performing Organization Address City/[facility] Co de Phone Number [facility] [address] [place] [address] * (ABNORMAL) CBC WITH DIFFERENTIAL (11/02/2024 1:58 PM CHEMICAL ETCH OPERATOR) Only the most recent of3 resultswithin the time period is included. Pathologist [facility] White Blood Cell Count 8.8 3.8 - 10.8 Thousand/u L [facility] RBC 5.47(H) 3.80 - 5.10 Million/uL [facility] Hemoglobin 13.1 11.7 - 15.5 g/dL [facility] Hematocrit 42.9 35.0 - 45.0 % [facility] MCV 78.4(L) 80.0 - 100.0 fL [facility] MCH 23.9(L) 27.0 - 33.0 pg [facility] MCHC 30.5(L) 32.0 - 36.0 g/dL [facility] Comment: For adults, a slight decrease in the calculated MCHC value (in the range of 30 to 32 g/dL) is most likely not clinically significant; however, it should be interpreted with caution in correlation with other red cell parameters and the patient's clinical condition. RDW 14.5 11.0 - 15.0 % [facility] Platelet Count 519(H) 140 - 400 Thousand/u L [facility] MPV 9.6 7.5 - 12.5 fL [facility] Neutrophil Absolute 6380 1500 - 7800 cells/uL [facility] Lymphocytes Absolute 1346 850 - 3900 cells/uL [facility] Absolute Monocytes 880 200 - 950 cells/uL [facility] Eosinophils Absolute 132 15 - 500 cells/uL [facility] Basophils Absolute 62 0 - 200 cells/uL [facility] Granulocytes % 72.5 % [facility] Lymphocytes % 15.3 % [facility] Monocytes % 10.0 % [facility] Eosinophils % 1.5 % [facility] Basophils % 0.7 % [facility] Comment: Test Performed at: [facility] [address] [place] [address] JENIFER SANCHEZ MD Blood BLOOD SPECIMEN / Unknown 11/02/2024 1:58 PM CHEMICAL ETCH OPERATOR 11/02/2024 1:58 PM CHEMICAL ETCH OPERATOR Christiano Castanon MD LAB - HEMATOLOGY ORD ERABLES [facility] [address] [place] [address] * (ABNORMAL) COMPREHENSIVE METABOLIC PANEL (11/02/2024 1:58 PM CHEMICAL ETCH OPERATOR) Only the most recent of3 resultswithin the time period is included. Glucose 100(H) 65 - 99 mg/dL [facility] Comment: Fasting reference interval For someone without known diabetes, a glucose value between 100 and 125 mg/dL is consistent with prediabetes and should be confirmed with a follow-up test. BUN 9 7 - 25 mg/dL [facility] Creatinine 0.65 0.50 - 1.05 mg/dL [facility] eGFR by Cystatin C 101 > OR = 60 mL/min/1. 73m2 [facility] BUN/Creatinine Ratio SEE NOTE: 6 - 22 (calc) [facility] Comment: Not Reported: BUN and Creatinine are within reference range. Sodium 139 135 - 146 mmol/L [facility] Potassium 4.5 3.5 - 5.3 mmol/L [facility] Chloride 103 98 - 110 mmol/L [facility] CO2 28 20 - 32 mmol/L [facility] Calcium 9.4 8.6 - 10.4 mg/dL [facility] Protein Total 7.7 6.1 - 8.1 g/dL [facility] Albumin 3.9 3.6 - 5.1 g/dL [facility] Globulin Total 3.8(H) 1.9 - 3.7 g/dL (calc) [facility] Albumin/Globulin Ratio 1.0 1.0 - 2.5 (calc) [facility] Bilirubin Total 0.5 0.2 - 1.2 mg/dL [facility] Alkaline Phosphatase 139 37 - 153 U/L [facility] AST 19 10 - 35 U/L [facility] ALT 11 6 - 29 U/L [facility] Comment: Test Performed at: [facility] [address] [place] [address] JENIFER SANCHEZ MD Blood BLOOD SPECIMEN / Unknown 11/02/2024 1:58 PM CHEMICAL ETCH OPERATOR 11/02/2024 1:58 PM CHEMICAL ETCH OPERATOR Christiano Castanon MD LAB - CHEMISTRY DIAN SOTO [facility] Organization Address City/State/ZIP Co de Phone Number [facility] [address] [place] [address] * DERMATOPATHOLOGY (09/28/2024 1:58 PM CHEMICAL ETCH OPERATOR) Case Report Dermatopathology Report Case: [id number] Authorizing Provider: Gala Venegas MD Collected: 09/28/2024 01:58 PM Ordering Location: [facility] - Received: 09/29/2024 03:04 PM DermPath Lab Pathologist: Barbara Trejo MD Specimen: Skin, left leg 4:24 PM CHEMICAL ETCH OPERATOR DERMATOPATHOLOGY LABORATORY Final Diagnosis Specimen A. SKIN, left leg: ULCER WITH SUPERFICIAL DERMAL NECROSIS AND DERMAL LYMPHOHISTIOCYTIC INFLAMMATION WITH NEUTROPHILS (L98.499) (see microscopic description and comment) 4:24 PM CHEMICAL ETCH OPERATOR DERMATOPATHOLOGY LABORATORY Clinical History Hx of RA on MTX; Neurophilic Dermatis/PN/Lymphom a 4:24 PM [facility] DERMATOPATHOLOGY LABORATORY Gross Description Specimen A: Received is one formalin filled container labeled with the patient's name and designated left leg. The specimen consists of a punch biopsy measuring 4x4x5 mm. Jar 0. 4:24 PM [facility] DERMATOPATHOLOGY LABORATORY Microscopic Description Specimen A. SKIN, left leg: There is an ulcer, beneath which there is fibrin,vascular proliferation, fibroblasts, and an edematous stroma. Subjacent to the zone of fibrin, there is a brisk neutrophilic infiltrate. Beneath the zone of dermal necrosis, there is a surrounding lymphohistiocytic dermal infiltrate. The hematoxylin and eosin stain is reviewed; immunohistochemical and special stains are performed to further characterize this process. Grocott's methenamine silver (GMS) stain fails to highlight fungal elements in the available sections. Tissue Gram stain is negative for bacteria in the sections examined. Colin stain is negative for mycobacteria. CD3 highlights the background perivascular and interstitial lymphocytic infiltrate. CD68 lujan intermingled histiocytes. CD30 is negative except for rare scattered cells. COMMENT: The findings in this specimen are not specific and the differential diagnosis is somewhat broad. In the provided clinical context, a neutrophilic dermatosis such as superficial granulomatous pyoderma could be considered. Other neutrophilic dermatosis, including pyoderma gangrenosum and Sweet syndrome are also a possibility. Cutaneous ulceration secondary to methotrexate therapy was considered. A granulomatous dermatitis with secondary epidermal change seems least likely but remains a possibility. Despite negative tissue stains, infection is not excluded and correlation with tissue culture is encouraged. If this process fails to respond to therapy, consideration could be given to repeat interval sampling. Clinicopathologic correlation is recommended. 4:24 PM [facility] DERMATOPATHOLOGY LABORATORY Disclaimer An external and internal positive and negative controls are appropriate for the histochemical, immunohistochemical and immunofluorescence stain(s) in this case (if any), except where stated explicitly. The performance characteristics of the stain(s) cited in this report were developed and its performance characteristic determined by the Dermatopathology Laboratory at [facility], directed by Dr. Eusebio Harris. These tests need not be, and therefore are not, approved by the [place] Food and Drug Administration. The tests are used for clinical purposes. Billing Codes Specimen Charges Stain Charges 77043 1 20543 12380 75734 82420 10292 24560 1 1 1 1 1 1 5 4:24 PM CHEMICAL ETCH OPERATOR DERMATOPATHOLOGY LABORATORY Embedded Images 5 4:24 PM CHEMICAL ETCH OPERATOR DERMATOPATHOLOGY LABORATORY Pathology/Cytolo gy TISSUE SPECIMEN FROM SKIN / Unknown 09/28/2024 1:58 PM CHEMICAL ETCH OPERATOR 09/29/2024 3:04 PM CHEMICAL ETCH OPERATOR Gala Venegas MD LAB - PATHOLOGY/CYTO LOGY ORDERABLES DERMATOPATHOLOGY LABORATORY [facility] - Department of Dermatology [address], [address] [phone] * MRI Thoracic Spine Wo Contrast (09/25/2024 1:17 PM CHEMICAL ETCH OPERATOR) Anatomical Region Laterality Modality Chest Magnetic Resonan ce 09/25/2024 1:22 PM CHEMICAL ETCH OPERATOR Impressions 09/25/2024 2:07 PM CHEMICAL ETCH OPERATOR IMPRESSION: MRI brain: 1.No evidence of acute intracranial findings. MRI thoracic spine: 1.No high-grade spinal canal or high-grade neural foraminal stenosis at any level. 2.No cord compression. > Interpreting Provider: Umu Suarez MD on 09/25/2024 2:07 PM Narrative 09/25/2024 2:07 PM CHEMICAL ETCH OPERATOR PROCEDURE: MRI BRAIN WO CONTRAST, MRI THORACIC SPINE WO CONTRAST, DATE/TIME OF EXAM: 09/25/2024 1:17 PM, LOCATION [facility] INDICATION: R27.0: Ataxia M54.2: Neck pain ADDITIONAL CLINICAL INFORMATION: Ordering Provider Reason For Exam: Ataxia. Neck pain. Technologist Note: None Additional: None. EXAMINATION: 1.Magnetic resonance imaging (MRI) of the brain without contrast 2.MRI of the thoracic spine without contrast HISTORY: R27.0: Ataxia M54.2: Neck pain TECHNIQUE: MRI of the brain and thoracic spine was performed without contrast according to standard protocol. COMPARISON: No prior study is available for comparison at the time of this dictation. FINDINGS: Brain: No evidence of acute or chronic hemorrhage is identified. No evidence of acute cerebral infarction is seen. There is mild cerebral volume loss with associated ex vacuo ventricular dilatation. No mass effect or midline shift is seen. Trace periventricular and rare subcortical white matter FLAIR hyperintensities likely represent sequelae of chronic small vessel ischemic disease. Tiny foci of T2 signal in the left cerebral peduncle, (series 14, image 9, nonspecific and could represent tiny prior infarcts. The corpus callosum and sella appear normal. The posterior fossa and brainstem appear normal. The visualized portions of the orbits, paranasal sinuses, and mastoids appear normal. Normal flow voids are demonstrated in the carotid arteries and basilar artery. Diffuse decreased marrow signal of the calvarium and visualized cervical spine is a nonspecific finding but can be seen in the setting of anemia or bone marrow infiltration. Clinical correlation is recommended. The calvarium appears otherwise grossly unremarkable. Please refer to the prior MRI of the cervical spine from 06/22/2024 for the cervical spine findings. Thoracic spine: Mild dextro curvature of the thoracic spine. There is slight increased kyphotic curvature of the upper thoracic spine. The alignment is otherwise maintained. Vertebral bodies are normal in height without evidence of compression fractures. Subtle heterogenous fatty marrow signal is noted at multiple levels. Endplate degenerative changes noted at few levels. Decreased bone marrow signal throughout the imaged cervical and thoracic spine is a nonspecific finding but can be seen in the setting of anemia or bone marrow infiltration. Clinical correlation is recommended. Marrow signal intensity is grossly unremarkable. The spinal cord appears normal. The anterior and posterior longitudinal ligaments as well as the posterior ligamentous complex appear intact. The thoracic aorta is tortuous. Procedure Note Umu Suarez MD - 09/25/2024 PROCEDURE: MRI BRAIN WO CONTRAST, MRI THORACIC SPINE WO CONTRAST, DATE/TIME OF EXAM: 09/25/2024 1:17 PM, LOCATION [facility] INDICATION: R27.0: Ataxia M54.2: Neck pain ADDITIONAL CLINICAL INFORMATION: Ordering Provider Reason For Exam: Ataxia. Neck pain. Technologist Note: None Additional: None. EXAMINATION: 1.Magnetic resonance imaging (MRI) of the brain without contrast 2.MRI of the thoracic spine without contrast HISTORY: R27.0: Ataxia M54.2: Neck pain TECHNIQUE: MRI of the brain and thoracic spine was performed without contrast according to standard protocol. COMPARISON: No prior study is available for comparison at the time ofthis dictation. FINDINGS: Brain: No evidence of acute or chronic hemorrhage is identified. No evidence of acute cerebral infarction is seen. There is mild cerebral volume losswith associated ex vacuo ventricular dilatation. No mass effect or midlineshift is seen. Trace periventricular and rare subcortical white matter FLAIR hyperintensities likely represent sequelae of chronic small vesselischemic disease. Tiny foci of T2 signal in the left cerebral peduncle, ([id number], image 9, nonspecific and could represent tiny prior infarcts. The corpus callosum and sella appear normal. The posterior fossa and brainstemappear normal. The visualized portions of the orbits, paranasal sinuses, and mastoids appear normal. Normal flow voids are demonstrated in the carotidarteries and basilar artery. Diffuse decreased marrow signal of the calvarium and visualized cervical spine is a nonspecific finding but can be seen inthe setting of anemia or bone marrow infiltration. Clinical correlation is recommended. The calvarium appears otherwise grossly unremarkable. Please refer to the prior MRI of the cervical spine from 06/22/2024 forthe cervical spine findings. Thoracic spine: Mild dextro curvature of the thoracic spine. There is slight increased kyphotic curvature of the upper thoracic spine. The alignment isotherwise maintained. Vertebral bodies are normal in height without evidence of compression fractures. Subtle heterogenous fatty marrow signal is notedat multiple levels. Endplate degenerative changes noted at few levels. Decreased bone marrow signal throughout the imaged cervical and thoracic spine is a nonspecific finding but can be seen in the setting of anemiaor bone marrow infiltration. Clinical correlation is recommended. Marrow signal intensity is grossly unremarkable. The spinal cord appearsnormal. The anterior and posterior longitudinal ligaments as well as theposterior ligamentous complex appear intact. The thoracic aorta is tortuous. IMPRESSION: MRI brain: 1.No evidence of acute intracranial findings. MRI thoracic spine: 1.No high-grade spinal canal or high-grade neural foraminal stenosis atany level. 2.No cord compression. > Interpreting Provider: Umu Suarez MD on 09/25/2024 2:07 PM Omi Shelby MD MR ORDERABLES * MRI Brain Wo Contrast (09/25/2024 1:16 PM CHEMICAL ETCH OPERATOR) Anatomical Region Laterality Modality Head Magnetic Resonan ce 09/25/2024 1:22 PM CHEMICAL ETCH OPERATOR Impressions 09/25/2024 2:07 PM CHEMICAL ETCH OPERATOR IMPRESSION: MRI brain: 1.No evidence of acute intracranial findings. MRI thoracic spine: 1.No high-grade spinal canal or high-grade neural foraminal stenosis at any level. 2.No cord compression. > Interpreting Provider: Umu Suarez MD on 09/25/2024 2:07 PM Narrative 09/25/2024 2:07 PM CHEMICAL ETCH OPERATOR PROCEDURE: MRI BRAIN WO CONTRAST, MRI THORACIC SPINE WO CONTRAST, DATE/TIME OF EXAM: 09/25/2024 1:17 PM, LOCATION [facility] INDICATION: R27.0: Ataxia M54.2: Neck pain ADDITIONAL CLINICAL INFORMATION: Ordering Provider Reason For Exam: Ataxia. Neck pain. Technologist Note: None Additional: None. EXAMINATION: 1.Magnetic resonance imaging (MRI) of the brain without contrast 2.MRI of the thoracic spine without contrast HISTORY: R27.0: Ataxia M54.2: Neck pain TECHNIQUE: MRI of the brain and thoracic spine was performed without contrast according to standard protocol. COMPARISON: No prior study is available for comparison at the time of this dictation. FINDINGS: Brain: No evidence of acute or chronic hemorrhage is identified. No evidence of acute cerebral infarction is seen. There is mild cerebral volume loss with associated ex vacuo ventricular dilatation. No mass effect or midline shift is seen. Trace periventricular and rare subcortical white matter FLAIR hyperintensities likely represent sequelae of chronic small vessel ischemic disease. Tiny foci of T2 signal in the left cerebral peduncle, (series 14, image 9, nonspecific and could represent tiny prior infarcts. The corpus callosum and sella appear normal. The posterior fossa and brainstem appear normal. The visualized portions of the orbits, paranasal sinuses, and mastoids appear normal. Normal flow voids are demonstrated in the carotid arteries and basilar artery. Diffuse decreased marrow signal of the calvarium and visualized cervical spine is a nonspecific finding but can be seen in the setting of anemia or bone marrow infiltration. Clinical correlation is recommended. The calvarium appears otherwise grossly unremarkable. Please refer to the prior MRI of the cervical spine from 06/22/2024 for the cervical spine findings. Thoracic spine: Mild dextro curvature of the thoracic spine. There is slight increased kyphotic curvature of the upper thoracic spine. The alignment is otherwise maintained. Vertebral bodies are normal in height without evidence of compression fractures. Subtle heterogenous fatty marrow signal is noted at multiple levels. Endplate degenerative changes noted at few levels. Decreased bone marrow signal throughout the imaged cervical and thoracic spine is a nonspecific finding but can be seen in the setting of anemia or bone marrow infiltration. Clinical correlation is recommended. Marrow signal intensity is grossly unremarkable. The spinal cord appears normal. The anterior and posterior longitudinal ligaments as well as the posterior ligamentous complex appear intact. The thoracic aorta is tortuous. Procedure Note Umu Suarez MD - 09/25/2024 PROCEDURE: MRI BRAIN WO CONTRAST, MRI THORACIC SPINE WO CONTRAST, DATE/TIME OF EXAM: 09/25/2024 1:17 PM, LOCATION [facility] INDICATION: R27.0: Ataxia M54.2: Neck pain ADDITIONAL CLINICAL INFORMATION: Ordering Provider Reason For Exam: Ataxia. Neck pain. Technologist Note: None Additional: None. EXAMINATION: 1.Magnetic resonance imaging (MRI) of the brain without contrast 2.MRI of the thoracic spine without contrast HISTORY: R27.0: Ataxia M54.2: Neck pain TECHNIQUE: MRI of the brain and thoracic spine was performed without contrast according to standard protocol. COMPARISON: No prior study is available for comparison at the time ofthis dictation. FINDINGS: Brain: No evidence of acute or chronic hemorrhage is identified. No evidence of acute cerebral infarction is seen. There is mild cerebral volume losswith associated ex vacuo ventricular dilatation. No mass effect or midlineshift is seen. Trace periventricular and rare subcortical white matter FLAIR hyperintensities likely represent sequelae of chronic small vesselischemic disease. Tiny foci of T2 signal in the left cerebral peduncle, ([id number], image 9, nonspecific and could represent tiny prior infarcts. The corpus callosum and sella appear normal. The posterior fossa and brainstemappear normal. The visualized portions of the orbits, paranasal sinuses, and mastoids appear normal. Normal flow voids are demonstrated in the carotidarteries and basilar artery. Diffuse decreased marrow signal of the calvarium and visualized cervical spine is a nonspecific finding but can be seen inthe setting of anemia or bone marrow infiltration. Clinical correlation is recommended. The calvarium appears otherwise grossly unremarkable. Please refer to the prior MRI of the cervical spine from 06/22/2024 forthe cervical spine findings. Thoracic spine: Mild dextro curvature of the thoracic spine. There is slight increased kyphotic curvature of the upper thoracic spine. The alignment isotherwise maintained. Vertebral bodies are normal in height without evidence of compression fractures. Subtle heterogenous fatty marrow signal is notedat multiple levels. Endplate degenerative changes noted at few levels. Decreased bone marrow signal throughout the imaged cervical and thoracic spine is a nonspecific finding but can be seen in the setting of anemiaor bone marrow infiltration. Clinical correlation is recommended. Marrow signal intensity is grossly unremarkable. The spinal cord appearsnormal. The anterior and posterior longitudinal ligaments as well as theposterior ligamentous complex appear intact. The thoracic aorta is tortuous. IMPRESSION: MRI brain: 1.No evidence of acute intracranial findings. MRI thoracic spine: 1.No high-grade spinal canal or high-grade neural foraminal stenosis atany level. 2.No cord compression. > Interpreting Provider: Umu Suarez MD on 09/25/2024 2:07 PM Omi Shelby MD MR ORDERABLES * (ABNORMAL) URINALYSIS W/MICROSCOPIC NO CULTURE (09/22/2024 11:45 AM CHEMICAL ETCH OPERATOR) Color UA YELLOW YELLOW [facility] Appearance CLEAR CLEAR [facility] Specific [place] UA 1.008 1.001 - 1.035 [facility] pH UA 5.5 5.0 - 8.0 [facility] Glucose UA NEGATIVE NEGATIVE [facility] Bilirubin UA NEGATIVE NEGATIVE [facility] Ketone UA NEGATIVE NEGATIVE [facility] Blood UA NEGATIVE NEGATIVE [facility] Protein UA NEGATIVE NEGATIVE [facility] Nitrite UA NEGATIVE NEGATIVE [facility] Leukocyte UA TRACE(A) NEGATIVE [facility] WBC UA 0-5 < OR = 5 /HPF [facility] RBC UA NONE SEEN < OR = 2 /HPF [facility] Epithelial Cell UA 0-5 < OR = 5 /HPF [facility] Transitional Epithelial Cells [facility] Renal Epithelial Cells [facility] Bacteria UA NONE SEEN NONE SEEN /HPF [facility] Calcium Oxalate Crystals [facility] Triple Phosphate Crystals [facility] Uric Acid Crystals [facility] Amorphous UA [facility] Crystals UA [facility] Hyaline Casts NONE SEEN NONE SEEN /LPF [facility] Comment: Test Performed at: [facility] [address] [place] [address] JENIFER SANCHEZ MD Granular Casts [facility] Casts UA [facility] Yeast [facility] Comments [facility] Note [facility] Comment: Test Performed at: [facility] [id number] [place] [address] JENIFER SANCHEZ MD Urine URINE SPECIMEN OBTAINED BY CLEAN CATCH PROCEDURE / Unknown 09/22/2024 11:45 AM CHEMICAL ETCH OPERATOR 09/22/2024 11:45 AM CHEMICAL ETCH OPERATOR Christiano Castanon MD LAB - URINALYSIS ORD ERABLES Performing Organization Address [facility] de Phone Number [place] [phone] * ALDOLASE (09/22/2024 11:45 AM CHEMICAL ETCH OPERATOR) Pathologist [facility] Aldolase 4.7 < OR = 8.1 U/L [facility] Comment: REPORT COMMENT: FASTING:YES Test Performed at: [facility] [place] [address] JENIFER SANCHEZ MD Blood BLOOD SPECIMEN / Unknown 09/22/2024 11:45 AM CHEMICAL ETCH OPERATOR 09/22/2024 11:45 AM CHEMICAL ETCH OPERATOR Christiano Castanon MD LAB - CHEMISTRY DIAN SOTO Performing Organization Address [facility] Phone Number [place] [phone] * CK BLOOD (09/22/2024 11:45 AM CHEMICAL ETCH OPERATOR) Pathologist [facility] CK 29 29 - 143 U/L [facility] Comment: Test Performed at: [facility] [place] [address] JENIFER SANCHEZ MD Blood BLOOD SPECIMEN / Unknown 09/22/2024 11:45 AM CHEMICAL ETCH OPERATOR 09/22/2024 11:45 AM CHEMICAL ETCH OPERATOR Christiano Castanon MD LAB - CHEMISTRY DIAN SOTO Performing Organization Address [facility] [place] [address] * (ABNORMAL) PROTEIN ELECTROPHORESIS BLOOD (09/22/2024 11:45 AM CHEMICAL ETCH OPERATOR) Pathologist [facility] Protein Total 7.6 6.1 - 8.1 g/dL [facility] Albumin 3.2(L) 3.8 - 4.8 g/dL [facility] Alpha-1 Globulin 0.5(H) 0.2 - 0.3 g/dL [facility] Yitzi-7-Hbhbyqyi 1.0(H) 0.5 - 0.9 g/dL [facility] Beta-1 Globulin g/dL 0.6 0.4 - 0.6 g/dL [facility] Beta-2 Globulin 0.7(H) 0.2 - 0.5 g/dL [facility] Gamma Globulin 1.6 0.8 - 1.7 g/dL [facility] Abnormal Protein Band [facility] Abnormal Protein Band 2 [facility] Abnormal Protein Band 3 [facility] Interpretation [facility] Comment: Hypoalbuminemia with an increase in [id number], ttsys-[id number] or both, is consistent with an acute phase response. No restricted band (M-spike) seen. Test Performed at: [facility] [address] [place] [address] JENIFER SANCHEZ MD Blood BLOOD SPECIMEN / Unknown 09/22/2024 11:45 AM CHEMICAL ETCH OPERATOR 09/22/2024 11:45 AM CHEMICAL ETCH OPERATOR Christiano Castanon MD LAB - CHEMISTRY DIAN [facility] Organization Address City/State/[facility] Co de Phone Number [facility] [address] [place] [address] * XR Foot Right 2Vw (09/21/2024 4:26 PM CHEMICAL ETCH OPERATOR) Anatomical Region Laterality Modality Ankle / Foot Digital Radiogra phy 09/22/2024 8:01 AM CHEMICAL ETCH OPERATOR Impressions 09/22/2024 8:20 AM CHEMICAL ETCH OPERATOR IMPRESSION: 1. Right hand: [place]-neck deformity of the third digit with additional deformity (ulnar deviation) and mild arthritis at the distal interphalangeal joint, not changed. There is a chronic ossicle at this joint suggesting that the findings may be posttraumatic related to prior fracture. Flexion deformity and mild arthritis of the fifth digit proximal interphalangeal joint, unchanged. 2. Left hand: No arthritis. 3. Right wrist: Moderate to severe arthritis including chronic erosive arthritis compatible with the patient's history of rheumatoid arthritis, and secondary degenerative changes, slightly progressed. 4. Left wrist: Mild degenerative change at the first carpometacarpal joint, not progressed. No erosions. 5. Right foot: Very mild arthritis in the forefoot, not progressed. 6. Left foot: No arthritis. > Interpreting Provider: Hamzah Hanley MD on 09/22/2024 8:20 AM Narrative 09/22/2024 8:20 AM CHEMICAL ETCH OPERATOR PROCEDURE: XR HAND RIGHT 2VW, XR WRIST RIGHT 2VW, XR WRIST LEFT 2VW, XR HAND LEFT 2VW, XR FOOT LEFT 2VW, XR FOOT RIGHT 2VW DATE/TIME OF EXAM: 09/21/2024 4:26 PM CLINICAL INFORMATION: None relevant/not provided if blank. 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 FINDINGS: Right hand: No acute fracture or dislocation is present. There is chronic deformity of the third digit middle phalanx head and distal interphalangeal joint with ulnar deviation at the joint and an ossicle medially. This could be posttraumatic. There is also flexion of the distal interphalangeal joint and extension at the proximal interphalangeal joint (swan-neck deformity). There is flexion deformity at the fifth digit proximal interphalangeal joint. There is mild arthritis at these joints. The metacarpophalangeal joint spaces are normal. No acute erosions are visible. The bones are osteopenic. Left hand: No acute fracture or dislocation is present. There is mild chronic deformity of the fourth digit distal phalanx base which could be posttraumatic. The joint spaces are normal. No erosions are seen. There is an area of sclerosis in the fifth digit distal phalanx, unchanged. Otherwise the bones are osteopenic. The soft tissues are normal. Right wrist: No fracture or dislocation is present. There is joint space narrowing throughout the wrist, severe between the lunate and capitate with [id number] contact and generally moderate elsewhere. There are multiple areas of cortical irregularity and lucency compatible with erosions. These appear chronic and unchanged. There is erosion of the ulnar styloid process. No acute erosions are seen. There is subchondral sclerosis at several joints. The bones are osteopenic. There is mild soft tissue swelling. Left wrist: No fracture or dislocation is present. There is mild degenerative change at the first carpometacarpal joint with small osteophytes. Otherwise the joint spaces are maintained. No erosions are seen. The bones are mildly osteopenic. There is mild soft tissue swelling. Right foot: No fracture or dislocation is present. There is mild degenerative change at the first metatarsophalangeal joint with small osteophytes and hypertrophy of the metatarsal head. There are a few small lucencies compatible with subchondral cysts and/or erosions including in the fifth toe proximal phalanx base medially and first toe proximal phalanx head laterally, unchanged. No acute erosions are present. The bones are mildly osteopenic. Left foot: No acute fracture or dislocation is present. There is mild chronic deformity of the fifth toe proximal phalanx head articular surface which may be posttraumatic. The joint spaces are normal. No erosions are seen. There is an elongated area of sclerosis in the first toe distal phalanx which may represent a bone island or osteopathia striata. The bones are otherwise mildly osteopenic. Procedure Note Hamzah Hanley MD - 09/22/2024 PROCEDURE: XR HAND RIGHT 2VW, XR WRIST RIGHT 2VW, XR WRIST LEFT 2VW, XR HAND LEFT 2VW, XR FOOT LEFT 2VW, XR FOOT RIGHT 2VW DATE/TIME OF EXAM: 09/21/2024 4:26 PM CLINICAL INFORMATION: None relevant/not provided if blank. 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 FINDINGS: Right hand: No acute fracture or dislocation is present. There is chronic deformityof the third digit middle phalanx head and distal interphalangeal jointwith ulnar deviation at the joint and an ossicle medially. This could be posttraumatic. There is also flexion of the distal interphalangeal joint and extension at the proximal interphalangeal joint (swan-neckdeformity). There is flexion deformity at the fifth digit proximal interphalangeal joint. There is mild arthritis at these joints. The metacarpophalangeal joint spaces are normal. No acute erosions are visible. The bones are osteopenic. Left hand: No acute fracture or dislocation is present. There is mild chronic deformity of the fourth digit distal phalanx base which could be posttraumatic. The joint spaces are normal. No erosions are seen. Thereis an area of sclerosis in the fifth digit distal phalanx, unchanged. Otherwise the bones are osteopenic. The soft tissues are normal. Right wrist: No fracture or dislocation is present. There is joint space narrowing throughout the wrist, severe between the lunate and capitate with cbxh-yv-qwzd contact and generally moderate elsewhere. There aremultiple areas of cortical irregularity and lucency compatible with erosions.These appear chronic and unchanged. There is erosion of the ulnar styloid process. No acute erosions are seen. There is subchondral sclerosis at several joints. The bones are osteopenic. There is mild soft tissue swelling. Left wrist: No fracture or dislocation is present. There is mild degenerative changeat the first carpometacarpal joint with small osteophytes. Otherwise thejoint spaces are maintained. No erosions are seen. The bones are mildly osteopenic. There is mild soft tissue swelling. Right foot: No fracture or dislocation is present. There is mild degenerative changeat the first metatarsophalangeal joint with small osteophytes andhypertrophy of the metatarsal head. There are a few small lucencies compatible with subchondral cysts and/or erosions including in the fifth toe proximal phalanx base medially and first toe proximal phalanx head laterally, unchanged. No acute erosions are present. The bones are mildlyosteopenic. Left foot: No acute fracture or dislocation is present. There is mild chronic deformity of the fifth toe proximal phalanx head articular surface which may be posttraumatic. The joint spaces are normal. No erosions are seen. There is an elongated area of sclerosis in the first toe distal phalanx which may represent a bone island or osteopathia striata. The bones are otherwise mildly osteopenic. IMPRESSION: 1. Right hand: [place]-neck deformity of the third digit with additional deformity (ulnar deviation) and mild arthritis at the distal interphalangeal joint, not changed. There is a chronic ossicle at this joint suggesting that the findings may be posttraumatic related to prior fracture. Flexion deformity and mild arthritis of the fifth digitproximal interphalangeal joint, unchanged. 2. Left hand: No arthritis. 3. Right wrist: Moderate to severe arthritis including chronic erosive arthritis compatible with the patient's history of rheumatoid arthritis, and secondary degenerative changes, slightly progressed. 4. Left wrist: Mild degenerative change at the first carpometacarpaljoint, not progressed. No erosions. 5. Right foot: Very mild arthritis in the forefoot, not progressed. 6. Left foot: No arthritis. > Interpreting Provider: Hamzah Hanley MD on 09/22/2024 8:20 AM Christiano Castanon MD DIAGNOSTIC IMAGING O RDERABLES * XR Foot Left 2Vw (09/21/2024 4:26 PM CHEMICAL ETCH OPERATOR) Anatomical Region Laterality Modality Ankle / Foot Digital Radiogra phy 09/22/2024 8:01 AM CHEMICAL ETCH OPERATOR Impressions 09/22/2024 8:20 AM CHEMICAL ETCH OPERATOR IMPRESSION: 1. Right hand: [place]-neck deformity of the third digit with additional deformity (ulnar deviation) and mild arthritis at the distal interphalangeal joint, not changed. There is a chronic ossicle at this joint suggesting that the findings may be posttraumatic related to prior fracture. Flexion deformity and mild arthritis of the fifth digit proximal interphalangeal joint, unchanged. 2. Left hand: No arthritis. 3. Right wrist: Moderate to severe arthritis including chronic erosive arthritis compatible with the patient's history of rheumatoid arthritis, and secondary degenerative changes, slightly progressed. 4. Left wrist: Mild degenerative change at the first carpometacarpal joint, not progressed. No erosions. 5. Right foot: Very mild arthritis in the forefoot, not progressed. 6. Left foot: No arthritis. > Interpreting Provider: Hamzah Hanley MD on 09/22/2024 8:20 AM Narrative 09/22/2024 8:20 AM CHEMICAL ETCH OPERATOR PROCEDURE: XR HAND RIGHT 2VW, XR WRIST RIGHT 2VW, XR WRIST LEFT 2VW, XR HAND LEFT 2VW, XR FOOT LEFT 2VW, XR FOOT RIGHT 2VW DATE/TIME OF EXAM: 09/21/2024 4:26 PM CLINICAL INFORMATION: None relevant/not provided if blank. 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 FINDINGS: Right hand: No acute fracture or dislocation is present. There is chronic deformity of the third digit middle phalanx head and distal interphalangeal joint with ulnar deviation at the joint and an ossicle medially. This could be posttraumatic. There is also flexion of the distal interphalangeal joint and extension at the proximal interphalangeal joint (swan-neck deformity). There is flexion deformity at the fifth digit proximal interphalangeal joint. There is mild arthritis at these joints. The metacarpophalangeal joint spaces are normal. No acute erosions are visible. The bones are osteopenic. Left hand: No acute fracture or dislocation is present. There is mild chronic deformity of the fourth digit distal phalanx base which could be posttraumatic. The joint spaces are normal. No erosions are seen. There is an area of sclerosis in the fifth digit distal phalanx, unchanged. Otherwise the bones are osteopenic. The soft tissues are normal. Right wrist: No fracture or dislocation is present. There is joint space narrowing throughout the wrist, severe between the lunate and capitate with lxqm-yh-dksx contact and generally moderate elsewhere. There are multiple areas of cortical irregularity and lucency compatible with erosions. These appear chronic and unchanged. There is erosion of the ulnar styloid process. No acute erosions are seen. There is subchondral sclerosis at several joints. The bones are osteopenic. There is mild soft tissue swelling. Left wrist: No fracture or dislocation is present. There is mild degenerative change at the first carpometacarpal joint with small osteophytes. Otherwise the joint spaces are maintained. No erosions are seen. The bones are mildly osteopenic. There is mild soft tissue swelling. Right foot: No fracture or dislocation is present. There is mild degenerative change at the first metatarsophalangeal joint with small osteophytes and hypertrophy of the metatarsal head. There are a few small lucencies compatible with subchondral cysts and/or erosions including in the fifth toe proximal phalanx base medially and first toe proximal phalanx head laterally, unchanged. No acute erosions are present. The bones are mildly osteopenic. Left foot: No acute fracture or dislocation is present. There is mild chronic deformity of the fifth toe proximal phalanx head articular surface which may be posttraumatic. The joint spaces are normal. No erosions are seen. There is an elongated area of sclerosis in the first toe distal phalanx which may represent a bone island or osteopathia striata. The bones are otherwise mildly osteopenic. Procedure Note Hamzah Hanley MD - 09/22/2024 PROCEDURE: XR HAND RIGHT 2VW, XR WRIST RIGHT 2VW, XR WRIST LEFT 2VW, XR HAND LEFT 2VW, XR FOOT LEFT 2VW, XR FOOT RIGHT 2VW DATE/TIME OF EXAM: 09/21/2024 4:26 PM CLINICAL INFORMATION: None relevant/not provided if blank. 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 FINDINGS: Right hand: No acute fracture or dislocation is present. There is chronic deformityof the third digit middle phalanx head and distal interphalangeal jointwith ulnar deviation at the joint and an ossicle medially. This could be posttraumatic. There is also flexion of the distal interphalangeal joint and extension at the proximal interphalangeal joint (swan-neckdeformity). There is flexion deformity at the fifth digit proximal interphalangeal joint. There is mild arthritis at these joints. The metacarpophalangeal joint spaces are normal. No acute erosions are visible. The bones are osteopenic. Left hand: No acute fracture or dislocation is present. There is mild chronic deformity of the fourth digit distal phalanx base which could be posttraumatic. The joint spaces are normal. No erosions are seen. Thereis an area of sclerosis in the fifth digit distal phalanx, unchanged. Otherwise the bones are osteopenic. The soft tissues are normal. Right wrist: No fracture or dislocation is present. There is joint space narrowing throughout the wrist, severe between the lunate and capitate with tpih-mn-pceu contact and generally moderate elsewhere. There aremultiple areas of cortical irregularity and lucency compatible with erosions.These appear chronic and unchanged. There is erosion of the ulnar styloid process. No acute erosions are seen. There is subchondral sclerosis at several joints. The bones are osteopenic. There is mild soft tissue swelling. Left wrist: No fracture or dislocation is present. There is mild degenerative changeat the first carpometacarpal joint with small osteophytes. Otherwise thejoint spaces are maintained. No erosions are seen. The bones are mildly osteopenic. There is mild soft tissue swelling. Right foot: No fracture or dislocation is present. There is mild degenerative changeat the first metatarsophalangeal joint with small osteophytes andhypertrophy of the metatarsal head. There are a few small lucencies compatible with subchondral cysts and/or erosions including in the fifth toe proximal phalanx base medially and first toe proximal phalanx head laterally, unchanged. No acute erosions are present. The bones are mildlyosteopenic. Left foot: No acute fracture or dislocation is present. There is mild chronic deformity of the fifth toe proximal phalanx head articular surface which may be posttraumatic. The joint spaces are normal. No erosions are seen. There is an elongated area of sclerosis in the first toe distal phalanx which may represent a bone island or osteopathia striata. The bones are otherwise mildly osteopenic. IMPRESSION: 1. Right hand: [place]-neck deformity of the third digit with additional deformity (ulnar deviation) and mild arthritis at the distal interphalangeal joint, not changed. There is a chronic ossicle at this joint suggesting that the findings may be posttraumatic related to prior fracture. Flexion deformity and mild arthritis of the fifth digitproximal interphalangeal joint, unchanged. 2. Left hand: No arthritis. 3. Right wrist: Moderate to severe arthritis including chronic erosive arthritis compatible with the patient's history of rheumatoid arthritis, and secondary degenerative changes, slightly progressed. 4. Left wrist: Mild degenerative change at the first carpometacarpaljoint, not progressed. No erosions. 5. Right foot: Very mild arthritis in the forefoot, not progressed. 6. Left foot: No arthritis. > Interpreting Provider: Hamzah Hanley MD on 09/22/2024 8:20 AM Christiano Castanon MD DIAGNOSTIC IMAGING O RDERABLES * XR Hand Right 2Vw (09/21/2024 4:26 PM CHEMICAL ETCH OPERATOR) Anatomical Region Laterality Modality Wrist / Hand Digital Radiogra phy 09/22/2024 8:01 AM CHEMICAL ETCH OPERATOR Impressions 09/22/2024 8:20 AM CHEMICAL ETCH OPERATOR IMPRESSION: 1. Right hand: [place]-neck deformity of the third digit with additional deformity (ulnar deviation) and mild arthritis at the distal interphalangeal joint, not changed. There is a chronic ossicle at this joint suggesting that the findings may be posttraumatic related to prior fracture. Flexion deformity and mild arthritis of the fifth digit proximal interphalangeal joint, unchanged. 2. Left hand: No arthritis. 3. Right wrist: Moderate to severe arthritis including chronic erosive arthritis compatible with the patient's history of rheumatoid arthritis, and secondary degenerative changes, slightly progressed. 4. Left wrist: Mild degenerative change at the first carpometacarpal joint, not progressed. No erosions. 5. Right foot: Very mild arthritis in the forefoot, not progressed. 6. Left foot: No arthritis. > Interpreting Provider: Hamzah Hanley MD on 09/22/2024 8:20 AM Narrative 09/22/2024 8:20 AM CHEMICAL ETCH OPERATOR PROCEDURE: XR HAND RIGHT 2VW, XR WRIST RIGHT 2VW, XR WRIST LEFT 2VW, XR HAND LEFT 2VW, XR FOOT LEFT 2VW, XR FOOT RIGHT 2VW DATE/TIME OF EXAM: 09/21/2024 4:26 PM CLINICAL INFORMATION: None relevant/not provided if blank. 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 FINDINGS: Right hand: No acute fracture or dislocation is present. There is chronic deformity of the third digit middle phalanx head and distal interphalangeal joint with ulnar deviation at the joint and an ossicle medially. This could be posttraumatic. There is also flexion of the distal interphalangeal joint and extension at the proximal interphalangeal joint (swan-neck deformity). There is flexion deformity at the fifth digit proximal interphalangeal joint. There is mild arthritis at these joints. The metacarpophalangeal joint spaces are normal. No acute erosions are visible. The bones are osteopenic. Left hand: No acute fracture or dislocation is present. There is mild chronic deformity of the fourth digit distal phalanx base which could be posttraumatic. The joint spaces are normal. No erosions are seen. There is an area of sclerosis in the fifth digit distal phalanx, unchanged. Otherwise the bones are osteopenic. The soft tissues are normal. Right wrist: No fracture or dislocation is present. There is joint space narrowing throughout the wrist, severe between the lunate and capitate with [id number] contact and generally moderate elsewhere. There are multiple areas of cortical irregularity and lucency compatible with erosions. These appear chronic and unchanged. There is erosion of the ulnar styloid process. No acute erosions are seen. There is subchondral sclerosis at several joints. The bones are osteopenic. There is mild soft tissue swelling. Left wrist: No fracture or dislocation is present. There is mild degenerative change at the first carpometacarpal joint with small osteophytes. Otherwise the joint spaces are maintained. No erosions are seen. The bones are mildly osteopenic. There is mild soft tissue swelling. Right foot: No fracture or dislocation is present. There is mild degenerative change at the first metatarsophalangeal joint with small osteophytes and hypertrophy of the metatarsal head. There are a few small lucencies compatible with subchondral cysts and/or erosions including in the fifth toe proximal phalanx base medially and first toe proximal phalanx head laterally, unchanged. No acute erosions are present. The bones are mildly osteopenic. Left foot: No acute fracture or dislocation is present. There is mild chronic deformity of the fifth toe proximal phalanx head articular surface which may be posttraumatic. The joint spaces are normal. No erosions are seen. There is an elongated area of sclerosis in the first toe distal phalanx which may represent a bone island or osteopathia striata. The bones are otherwise mildly osteopenic. Procedure Note Hamzah Hanley MD - 09/22/2024 PROCEDURE: XR HAND RIGHT 2VW, XR WRIST RIGHT 2VW, XR WRIST LEFT 2VW, XR HAND LEFT 2VW, XR FOOT LEFT 2VW, XR FOOT RIGHT 2VW DATE/TIME OF EXAM: 09/21/2024 4:26 PM CLINICAL INFORMATION: None relevant/not provided if blank. 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 FINDINGS: Right hand: No acute fracture or dislocation is present. There is chronic deformityof the third digit middle phalanx head and distal interphalangeal jointwith ulnar deviation at the joint and an ossicle medially. This could be posttraumatic. There is also flexion of the distal interphalangeal joint and extension at the proximal interphalangeal joint (swan-neckdeformity). There is flexion deformity at the fifth digit proximal interphalangeal joint. There is mild arthritis at these joints. The metacarpophalangeal joint spaces are normal. No acute erosions are visible. The bones are osteopenic. Left hand: No acute fracture or dislocation is present. There is mild chronic deformity of the fourth digit distal phalanx base which could be posttraumatic. The joint spaces are normal. No erosions are seen. Thereis an area of sclerosis in the fifth digit distal phalanx, unchanged. Otherwise the bones are osteopenic. The soft tissues are normal. Right wrist: No fracture or dislocation is present. There is joint space narrowing throughout the wrist, severe between the lunate and capitate with xsea-ka-guwe contact and generally moderate elsewhere. There aremultiple areas of cortical irregularity and lucency compatible with erosions.These appear chronic and unchanged. There is erosion of the ulnar styloid process. No acute erosions are seen. There is subchondral sclerosis at several joints. The bones are osteopenic. There is mild soft tissue swelling. Left wrist: No fracture or dislocation is present. There is mild degenerative changeat the first carpometacarpal joint with small osteophytes. Otherwise thejoint spaces are maintained. No erosions are seen. The bones are mildly osteopenic. There is mild soft tissue swelling. Right foot: No fracture or dislocation is present. There is mild degenerative changeat the first metatarsophalangeal joint with small osteophytes andhypertrophy of the metatarsal head. There are a few small lucencies compatible with subchondral cysts and/or erosions including in the fifth toe proximal phalanx base medially and first toe proximal phalanx head laterally, unchanged. No acute erosions are present. The bones are mildlyosteopenic. Left foot: No acute fracture or dislocation is present. There is mild chronic deformity of the fifth toe proximal phalanx head articular surface which may be posttraumatic. The joint spaces are normal. No erosions are seen. There is an elongated area of sclerosis in the first toe distal phalanx which may represent a bone island or osteopathia striata. The bones are otherwise mildly osteopenic. IMPRESSION: 1. Right hand: [place]-neck deformity of the third digit with additional deformity (ulnar deviation) and mild arthritis at the distal interphalangeal joint, not changed. There is a chronic ossicle at this joint suggesting that the findings may be posttraumatic related to prior fracture. Flexion deformity and mild arthritis of the fifth digitproximal interphalangeal joint, unchanged. 2. Left hand: No arthritis. 3. Right wrist: Moderate to severe arthritis including chronic erosive arthritis compatible with the patient's history of rheumatoid arthritis, and secondary degenerative changes, slightly progressed. 4. Left wrist: Mild degenerative change at the first carpometacarpaljoint, not progressed. No erosions. 5. Right foot: Very mild arthritis in the forefoot, not progressed. 6. Left foot: No arthritis. > Interpreting Provider: Hamzah Hanley MD on 09/22/2024 8:20 AM Christiano Castanon MD DIAGNOSTIC IMAGING O RDERABLES * XR Hand Left 2Vw (09/21/2024 4:26 PM CHEMICAL ETCH OPERATOR) Anatomical Region Laterality Modality Wrist / Hand Digital Radiogra phy 09/22/2024 8:01 AM CHEMICAL ETCH OPERATOR Impressions 09/22/2024 8:20 AM CHEMICAL ETCH OPERATOR IMPRESSION: 1. Right hand: [place]-neck deformity of the third digit with additional deformity (ulnar deviation) and mild arthritis at the distal interphalangeal joint, not changed. There is a chronic ossicle at this joint suggesting that the findings may be posttraumatic related to prior fracture. Flexion deformity and mild arthritis of the fifth digit proximal interphalangeal joint, unchanged. 2. Left hand: No arthritis. 3. Right wrist: Moderate to severe arthritis including chronic erosive arthritis compatible with the patient's history of rheumatoid arthritis, and secondary degenerative changes, slightly progressed. 4. Left wrist: Mild degenerative change at the first carpometacarpal joint, not progressed. No erosions. 5. Right foot: Very mild arthritis in the forefoot, not progressed. 6. Left foot: No arthritis. > Interpreting Provider: Hamzah Hanley MD on 09/22/2024 8:20 AM Narrative 09/22/2024 8:20 AM CHEMICAL ETCH OPERATOR PROCEDURE: XR HAND RIGHT 2VW, XR WRIST RIGHT 2VW, XR WRIST LEFT 2VW, XR HAND LEFT 2VW, XR FOOT LEFT 2VW, XR FOOT RIGHT 2VW DATE/TIME OF EXAM: 09/21/2024 4:26 PM CLINICAL INFORMATION: None relevant/not provided if blank. 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 FINDINGS: Right hand: No acute fracture or dislocation is present. There is chronic deformity of the third digit middle phalanx head and distal interphalangeal joint with ulnar deviation at the joint and an ossicle medially. This could be posttraumatic. There is also flexion of the distal interphalangeal joint and extension at the proximal interphalangeal joint (swan-neck deformity). There is flexion deformity at the fifth digit proximal interphalangeal joint. There is mild arthritis at these joints. The metacarpophalangeal joint spaces are normal. No acute erosions are visible. The bones are osteopenic. Left hand: No acute fracture or dislocation is present. There is mild chronic deformity of the fourth digit distal phalanx base which could be posttraumatic. The joint spaces are normal. No erosions are seen. There is an area of sclerosis in the fifth digit distal phalanx, unchanged. Otherwise the bones are osteopenic. The soft tissues are normal. Right wrist: No fracture or dislocation is present. There is joint space narrowing throughout the wrist, severe between the lunate and capitate with zxxi-yc-kafw contact and generally moderate elsewhere. There are multiple areas of cortical irregularity and lucency compatible with erosions. These appear chronic and unchanged. There is erosion of the ulnar styloid process. No acute erosions are seen. There is subchondral sclerosis at several joints. The bones are osteopenic. There is mild soft tissue swelling. Left wrist: No fracture or dislocation is present. There is mild degenerative change at the first carpometacarpal joint with small osteophytes. Otherwise the joint spaces are maintained. No erosions are seen. The bones are mildly osteopenic. There is mild soft tissue swelling. Right foot: No fracture or dislocation is present. There is mild degenerative change at the first metatarsophalangeal joint with small osteophytes and hypertrophy of the metatarsal head. There are a few small lucencies compatible with subchondral cysts and/or erosions including in the fifth toe proximal phalanx base medially and first toe proximal phalanx head laterally, unchanged. No acute erosions are present. The bones are mildly osteopenic. Left foot: No acute fracture or dislocation is present. There is mild chronic deformity of the fifth toe proximal phalanx head articular surface which may be posttraumatic. The joint spaces are normal. No erosions are seen. There is an elongated area of sclerosis in the first toe distal phalanx which may represent a bone island or osteopathia striata. The bones are otherwise mildly osteopenic. Procedure Note Hamzah Hanley MD - 09/22/2024 PROCEDURE: XR HAND RIGHT 2VW, XR WRIST RIGHT 2VW, XR WRIST LEFT 2VW, XR HAND LEFT 2VW, XR FOOT LEFT 2VW, XR FOOT RIGHT 2VW DATE/TIME OF EXAM: 09/21/2024 4:26 PM CLINICAL INFORMATION: None relevant/not provided if blank. 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 FINDINGS: Right hand: No acute fracture or dislocation is present. There is chronic deformityof the third digit middle phalanx head and distal interphalangeal jointwith ulnar deviation at the joint and an ossicle medially. This could be posttraumatic. There is also flexion of the distal interphalangeal joint and extension at the proximal interphalangeal joint (swan-neckdeformity). There is flexion deformity at the fifth digit proximal interphalangeal joint. There is mild arthritis at these joints. The metacarpophalangeal joint spaces are normal. No acute erosions are visible. The bones are osteopenic. Left hand: No acute fracture or dislocation is present. There is mild chronic deformity of the fourth digit distal phalanx base which could be posttraumatic. The joint spaces are normal. No erosions are seen. Thereis an area of sclerosis in the fifth digit distal phalanx, unchanged. Otherwise the bones are osteopenic. The soft tissues are normal. Right wrist: No fracture or dislocation is present. There is joint space narrowing throughout the wrist, severe between the lunate and capitate with wbiw-lj-afxi contact and generally moderate elsewhere. There aremultiple areas of cortical irregularity and lucency compatible with erosions.These appear chronic and unchanged. There is erosion of the ulnar styloid process. No acute erosions are seen. There is subchondral sclerosis at several joints. The bones are osteopenic. There is mild soft tissue swelling. Left wrist: No fracture or dislocation is present. There is mild degenerative changeat the first carpometacarpal joint with small osteophytes. Otherwise thejoint spaces are maintained. No erosions are seen. The bones are mildly osteopenic. There is mild soft tissue swelling. Right foot: No fracture or dislocation is present. There is mild degenerative changeat the first metatarsophalangeal joint with small osteophytes andhypertrophy of the metatarsal head. There are a few small lucencies compatible with subchondral cysts and/or erosions including in the fifth toe proximal phalanx base medially and first toe proximal phalanx head laterally, unchanged. No acute erosions are present. The bones are mildlyosteopenic. Left foot: No acute fracture or dislocation is present. There is mild chronic deformity of the fifth toe proximal phalanx head articular surface which may be posttraumatic. The joint spaces are normal. No erosions are seen. There is an elongated area of sclerosis in the first toe distal phalanx which may represent a bone island or osteopathia striata. The bones are otherwise mildly osteopenic. IMPRESSION: 1. Right hand: [place]-neck deformity of the third digit with additional deformity (ulnar deviation) and mild arthritis at the distal interphalangeal joint, not changed. There is a chronic ossicle at this joint suggesting that the findings may be posttraumatic related to prior fracture. Flexion deformity and mild arthritis of the fifth digitproximal interphalangeal joint, unchanged. 2. Left hand: No arthritis. 3. Right wrist: Moderate to severe arthritis including chronic erosive arthritis compatible with the patient's history of rheumatoid arthritis, and secondary degenerative changes, slightly progressed. 4. Left wrist: Mild degenerative change at the first carpometacarpaljoint, not progressed. No erosions. 5. Right foot: Very mild arthritis in the forefoot, not progressed. 6. Left foot: No arthritis. > Interpreting Provider: Hamzah Hanley MD on 09/22/2024 8:20 AM Christiano Castanon MD DIAGNOSTIC IMAGING O RDERABLES * XR Wrist Right 2Vw (09/21/2024 4:26 PM CHEMICAL ETCH OPERATOR) Anatomical Region Laterality Modality Wrist / Hand Digital Radiogra phy 09/22/2024 8:01 AM CHEMICAL ETCH OPERATOR Impressions 09/22/2024 8:20 AM CHEMICAL ETCH OPERATOR IMPRESSION: 1. Right hand: [place]-neck deformity of the third digit with additional deformity (ulnar deviation) and mild arthritis at the distal interphalangeal joint, not changed. There is a chronic ossicle at this joint suggesting that the findings may be posttraumatic related to prior fracture. Flexion deformity and mild arthritis of the fifth digit proximal interphalangeal joint, unchanged. 2. Left hand: No arthritis. 3. Right wrist: Moderate to severe arthritis including chronic erosive arthritis compatible with the patient's history of rheumatoid arthritis, and secondary degenerative changes, slightly progressed. 4. Left wrist: Mild degenerative change at the first carpometacarpal joint, not progressed. No erosions. 5. Right foot: Very mild arthritis in the forefoot, not progressed. 6. Left foot: No arthritis. > Interpreting Provider: Hamzah Hanley MD on 09/22/2024 8:20 AM Narrative 09/22/2024 8:20 AM CHEMICAL ETCH OPERATOR PROCEDURE: XR HAND RIGHT 2VW, XR WRIST RIGHT 2VW, XR WRIST LEFT 2VW, XR HAND LEFT 2VW, XR FOOT LEFT 2VW, XR FOOT RIGHT 2VW DATE/TIME OF EXAM: 09/21/2024 4:26 PM CLINICAL INFORMATION: None relevant/not provided if blank. 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 FINDINGS: Right hand: No acute fracture or dislocation is present. There is chronic deformity of the third digit middle phalanx head and distal interphalangeal joint with ulnar deviation at the joint and an ossicle medially. This could be posttraumatic. There is also flexion of the distal interphalangeal joint and extension at the proximal interphalangeal joint (swan-neck deformity). There is flexion deformity at the fifth digit proximal interphalangeal joint. There is mild arthritis at these joints. The metacarpophalangeal joint spaces are normal. No acute erosions are visible. The bones are osteopenic. Left hand: No acute fracture or dislocation is present. There is mild chronic deformity of the fourth digit distal phalanx base which could be posttraumatic. The joint spaces are normal. No erosions are seen. There is an area of sclerosis in the fifth digit distal phalanx, unchanged. Otherwise the bones are osteopenic. The soft tissues are normal. Right wrist: No fracture or dislocation is present. There is joint space narrowing throughout the wrist, severe between the lunate and capitate with bkxf-rs-cwwa contact and generally moderate elsewhere. There are multiple areas of cortical irregularity and lucency compatible with erosions. These appear chronic and unchanged. There is erosion of the ulnar styloid process. No acute erosions are seen. There is subchondral sclerosis at several joints. The bones are osteopenic. There is mild soft tissue swelling. Left wrist: No fracture or dislocation is present. There is mild degenerative change at the first carpometacarpal joint with small osteophytes. Otherwise the joint spaces are maintained. No erosions are seen. The bones are mildly osteopenic. There is mild soft tissue swelling. Right foot: No fracture or dislocation is present. There is mild degenerative change at the first metatarsophalangeal joint with small osteophytes and hypertrophy of the metatarsal head. There are a few small lucencies compatible with subchondral cysts and/or erosions including in the fifth toe proximal phalanx base medially and first toe proximal phalanx head laterally, unchanged. No acute erosions are present. The bones are mildly osteopenic. Left foot: No acute fracture or dislocation is present. There is mild chronic deformity of the fifth toe proximal phalanx head articular surface which may be posttraumatic. The joint spaces are normal. No erosions are seen. There is an elongated area of sclerosis in the first toe distal phalanx which may represent a bone island or osteopathia striata. The bones are otherwise mildly osteopenic. Procedure Note Hamzah Hnaley MD - 01/08/2025 PROCEDURE: XR HAND RIGHT 2VW, XR WRIST RIGHT 2VW, XR WRIST LEFT 2VW, XR HAND LEFT 2VW, XR FOOT LEFT 2VW, XR FOOT RIGHT 2VW DATE/TIME OF EXAM: 09/21/2024 4:26 PM CLINICAL INFORMATION: None relevant/not provided if blank. 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 FINDINGS: Right hand: No acute fracture or dislocation is present. There is chronic deformityof the third digit middle phalanx head and distal interphalangeal jointwith ulnar deviation at the joint and an ossicle medially. This could be posttraumatic. There is also flexion of the distal interphalangeal joint and extension at the proximal interphalangeal joint (swan-neckdeformity). There is flexion deformity at the fifth digit proximal interphalangeal joint. There is mild arthritis at these joints. The metacarpophalangeal joint spaces are normal. No acute erosions are visible. The bones are osteopenic. Left hand: No acute fracture or dislocation is present. There is mild chronic deformity of the fourth digit distal phalanx base which could be posttraumatic. The joint spaces are normal. No erosions are seen. Thereis an area of sclerosis in the fifth digit distal phalanx, unchanged. Otherwise the bones are osteopenic. The soft tissues are normal. Right wrist: No fracture or dislocation is present. There is joint space narrowing throughout the wrist, severe between the lunate and capitate with uudb-vn-yzus contact and generally moderate elsewhere. There aremultiple areas of cortical irregularity and lucency compatible with erosions.These appear chronic and unchanged. There is erosion of the ulnar styloid process. No acute erosions are seen. There is subchondral sclerosis at several joints. The bones are osteopenic. There is mild soft tissue swelling. Left wrist: No fracture or dislocation is present. There is mild degenerative changeat the first carpometacarpal joint with small osteophytes. Otherwise thejoint spaces are maintained. No erosions are seen. The bones are mildly osteopenic. There is mild soft tissue swelling. Right foot: No fracture or dislocation is present. There is mild degenerative changeat the first metatarsophalangeal joint with small osteophytes andhypertrophy of the metatarsal head. There are a few small lucencies compatible with subchondral cysts and/or erosions including in the fifth toe proximal phalanx base medially and first toe proximal phalanx head laterally, unchanged. No acute erosions are present. The bones are mildlyosteopenic. Left foot: No acute fracture or dislocation is present. There is mild chronic deformity of the fifth toe proximal phalanx head articular surface which may be posttraumatic. The joint spaces are normal. No erosions are seen. There is an elongated area of sclerosis in the first toe distal phalanx which may represent a bone island or osteopathia striata. The bones are otherwise mildly osteopenic. IMPRESSION: 1. Right hand: [place]-neck deformity of the third digit with additional deformity (ulnar deviation) and mild arthritis at the distal interphalangeal joint, not changed. There is a chronic ossicle at this joint suggesting that the findings may be posttraumatic related to prior fracture. Flexion deformity and mild arthritis of the fifth digitproximal interphalangeal joint, unchanged. 2. Left hand: No arthritis. 3. Right wrist: Moderate to severe arthritis including chronic erosive arthritis compatible with the patient's history of rheumatoid arthritis, and secondary degenerative changes, slightly progressed. 4. Left wrist: Mild degenerative change at the first carpometacarpaljoint, not progressed. No erosions. 5. Right foot: Very mild arthritis in the forefoot, not progressed. 6. Left foot: No arthritis. > Interpreting Provider: Hamzah Hanley MD on 09/22/2024 8:20 AM Christiano Castanon MD DIAGNOSTIC IMAGING O RDERABLES * XR Wrist Left 2Vw (09/21/2024 4:26 PM CHEMICAL ETCH OPERATOR) Anatomical Region Laterality Modality Wrist / Hand Digital Radiogra phy 09/22/2024 8:01 AM CHEMICAL ETCH OPERATOR Impressions 09/22/2024 8:20 AM CHEMICAL ETCH OPERATOR IMPRESSION: 1. Right hand: [place]-neck deformity of the third digit with additional deformity (ulnar deviation) and mild arthritis at the distal interphalangeal joint, not changed. There is a chronic ossicle at this joint suggesting that the findings may be posttraumatic related to prior fracture. Flexion deformity and mild arthritis of the fifth digit proximal interphalangeal joint, unchanged. 2. Left hand: No arthritis. 3. Right wrist: Moderate to severe arthritis including chronic erosive arthritis compatible with the patient's history of rheumatoid arthritis, and secondary degenerative changes, slightly progressed. 4. Left wrist: Mild degenerative change at the first carpometacarpal joint, not progressed. No erosions. 5. Right foot: Very mild arthritis in the forefoot, not progressed. 6. Left foot: No arthritis. > Interpreting Provider: Hamzah Hanley MD on 09/22/2024 8:20 AM Narrative 09/22/2024 8:20 AM CHEMICAL ETCH OPERATOR PROCEDURE: XR HAND RIGHT 2VW, XR WRIST RIGHT 2VW, XR WRIST LEFT 2VW, XR HAND LEFT 2VW, XR FOOT LEFT 2VW, XR FOOT RIGHT 2VW DATE/TIME OF EXAM: 09/21/2024 4:26 PM CLINICAL INFORMATION: None relevant/not provided if blank. 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 FINDINGS: Right hand: No acute fracture or dislocation is present. There is chronic deformity of the third digit middle phalanx head and distal interphalangeal joint with ulnar deviation at the joint and an ossicle medially. This could be posttraumatic. There is also flexion of the distal interphalangeal joint and extension at the proximal interphalangeal joint (swan-neck deformity). There is flexion deformity at the fifth digit proximal interphalangeal joint. There is mild arthritis at these joints. The metacarpophalangeal joint spaces are normal. No acute erosions are visible. The bones are osteopenic. Left hand: No acute fracture or dislocation is present. There is mild chronic deformity of the fourth digit distal phalanx base which could be posttraumatic. The joint spaces are normal. No erosions are seen. There is an area of sclerosis in the fifth digit distal phalanx, unchanged. Otherwise the bones are osteopenic. The soft tissues are normal. Right wrist: No fracture or dislocation is present. There is joint space narrowing throughout the wrist, severe between the lunate and capitate with bpzd-he-hvjx contact and generally moderate elsewhere. There are multiple areas of cortical irregularity and lucency compatible with erosions. These appear chronic and unchanged. There is erosion of the ulnar styloid process. No acute erosions are seen. There is subchondral sclerosis at several joints. The bones are osteopenic. There is mild soft tissue swelling. Left wrist: No fracture or dislocation is present. There is mild degenerative change at the first carpometacarpal joint with small osteophytes. Otherwise the joint spaces are maintained. No erosions are seen. The bones are mildly osteopenic. There is mild soft tissue swelling. Right foot: No fracture or dislocation is present. There is mild degenerative change at the first metatarsophalangeal joint with small osteophytes and hypertrophy of the metatarsal head. There are a few small lucencies compatible with subchondral cysts and/or erosions including in the fifth toe proximal phalanx base medially and first toe proximal phalanx head laterally, unchanged. No acute erosions are present. The bones are mildly osteopenic. Left foot: No acute fracture or dislocation is present. There is mild chronic deformity of the fifth toe proximal phalanx head articular surface which may be posttraumatic. The joint spaces are normal. No erosions are seen. There is an elongated area of sclerosis in the first toe distal phalanx which may represent a bone island or osteopathia striata. The bones are otherwise mildly osteopenic. Procedure Note Hamzah Hanley MD - 09/22/2024 PROCEDURE: XR HAND RIGHT 2VW, XR WRIST RIGHT 2VW, XR WRIST LEFT 2VW, XR HAND LEFT 2VW, XR FOOT LEFT 2VW, XR FOOT RIGHT 2VW DATE/TIME OF EXAM: 09/21/2024 4:26 PM CLINICAL INFORMATION: None relevant/not provided if blank. 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 FINDINGS: Right hand: No acute fracture or dislocation is present. There is chronic deformityof the third digit middle phalanx head and distal interphalangeal jointwith ulnar deviation at the joint and an ossicle medially. This could be posttraumatic. There is also flexion of the distal interphalangeal joint and extension at the proximal interphalangeal joint (swan-neckdeformity). There is flexion deformity at the fifth digit proximal interphalangeal joint. There is mild arthritis at these joints. The metacarpophalangeal joint spaces are normal. No acute erosions are visible. The bones are osteopenic. Left hand: No acute fracture or dislocation is present. There is mild chronic deformity of the fourth digit distal phalanx base which could be posttraumatic. The joint spaces are normal. No erosions are seen. Thereis an area of sclerosis in the fifth digit distal phalanx, unchanged. Otherwise the bones are osteopenic. The soft tissues are normal. Right wrist: No fracture or dislocation is present. There is joint space narrowing throughout the wrist, severe between the lunate and capitate with ksyh-gs-hwox contact and generally moderate elsewhere. There aremultiple areas of cortical irregularity and lucency compatible with erosions.These appear chronic and unchanged. There is erosion of the ulnar styloid process. No acute erosions are seen. There is subchondral sclerosis at several joints. The bones are osteopenic. There is mild soft tissue swelling. Left wrist: No fracture or dislocation is present. There is mild degenerative changeat the first carpometacarpal joint with small osteophytes. Otherwise thejoint spaces are maintained. No erosions are seen. The bones are mildly osteopenic. There is mild soft tissue swelling. Right foot: No fracture or dislocation is present. There is mild degenerative changeat the first metatarsophalangeal joint with small osteophytes andhypertrophy of the metatarsal head. There are a few small lucencies compatible with subchondral cysts and/or erosions including in the fifth toe proximal phalanx base medially and first toe proximal phalanx head laterally, unchanged. No acute erosions are present. The bones are mildlyosteopenic. Left foot: No acute fracture or dislocation is present. There is mild chronic deformity of the fifth toe proximal phalanx head articular surface which may be posttraumatic. The joint spaces are normal. No erosions are seen. There is an elongated area of sclerosis in the first toe distal phalanx which may represent a bone island or osteopathia striata. The bones are otherwise mildly osteopenic. IMPRESSION: 1. Right hand: [place]-neck deformity of the third digit with additional deformity (ulnar deviation) and mild arthritis at the distal interphalangeal joint, not changed. There is a chronic ossicle at this joint suggesting that the findings may be posttraumatic related to prior fracture. Flexion deformity and mild arthritis of the fifth digitproximal interphalangeal joint, unchanged. 2. Left hand: No arthritis. 3. Right wrist: Moderate to severe arthritis including chronic erosive arthritis compatible with the patient's history of rheumatoid arthritis, and secondary degenerative changes, slightly progressed. 4. Left wrist: Mild degenerative change at the first carpometacarpaljoint, not progressed. No erosions. 5. Right foot: Very mild arthritis in the forefoot, not progressed. 6. Left foot: No arthritis. > Interpreting Provider: Hamzah Hanley MD on 09/22/2024 8:20 AM Christiano Castanon MD DIAGNOSTIC IMAGING O RDERABLES * EMG (09/13/2024 11:59 PM CHEMICAL ETCH OPERATOR) Narrative Omi Shelby MD - 09/13/2024 11:59 PM CHEMICAL ETCH OPERATOR Omi Shelby MD 09/15/2024 11:[address], [address] [phone] Patient: Cindy Woodard V #: Physician: Omi Shelby MD Sex: Female ID#: [id number] Ref Phys: Heron Braga MD : 1965 Date: 09/13/2024 Sales And Marketing Agent: Loretta Martinez Patient Complaints: The patient is a 59 year old female with complaints of neck pain and pain in bilateral upper extremities. The symptoms have been present for unknown length of time. The patient has a history of rheumatoid arthritis. Patient is not currently taking any anticoagulants. EMG & NCV Findings: The left Median/Ulnar Palmar comparison nerve conduction study showed small amplitude (Median Palm, 27.2 V). All remaining nerve conduction studies (as indicated in the following tables) were normal. All left vs. right side differences were within normal limits. EMG of all examined muscles (as indicated in the following table) was normal. IMPRESSION Normal electrodiagnostic study. No evidence of neuropathy of upper extremity including no evidence of carpal tunnel syndrome, ulnar neuropathy or cervical radiculopathy. Please correlate clinically. Omi Shelby MD Diplomate, Neuromuscular and Electrodiagnostic Medicine Nerve Conduction Studies Motor Summary Table Stim Site NR Onset (ms) Norm Onset (ms) O-P Amp (mV) Norm O-P Amp Neg Area (mVms) Site1 Site2 Delta-0 (ms) Dist (cm) Efrain (m/s) Norm Efrain (m/s) Left Median Motor (Abd Poll Brev) 36.2 C Wrist 3.1 <4.2 8.4 >4 25.99 Elbow Wrist 3.9 21.0 54 >48 Elbow 7.0 9.0 >4 28.43 Right Median Motor (Abd Poll Brev) 36.2 C Wrist 2.7 <4.2 12.2 >4 32.80 Elbow Wrist 3.7 22.0 59 >48 Elbow 6.4 12.1 >4 31.08 Left Ulnar Motor (Abd Dig Minimi) 36.2 C Wrist 2.2 <3.5 9.4 >6 26.75 B Elbow Wrist 3.7 23.5 64 >48 B Elbow 5.9 8.0 >6 23.84 A Elbow B Elbow 2.0 11.0 55 >48 A Elbow 7.9 7.3 >6 22.31 Right Ulnar Motor (Abd Dig Minimi) 36.2 C Wrist 2.1 <3.5 9.0 >6 20.68 B Elbow Wrist 3.5 23.0 66 >48 B Elbow 5.6 8.4 >6 20.71 A Elbow B Elbow 1.7 11.0 65 >48 A Elbow 7.3 7.6 >6 20.24 Anti Sensory Summary Table Stim Site NR Onset (ms) Peak (ms) Norm Onset (ms) O-P Amp ( V) Norm O-P Amp Site1 Site2 Delta-0 (ms) Dist (cm) Efrain (m/s) Norm Efrain (m/s) Left Radial Anti Sensory (Base 1st Digit) 36.2 C Wrist 1.3 1.8 25.2 >15 Wrist Base 1st Digit 1.3 10.0 77 >53 Right Radial Anti Sensory (Base 1st Digit) 36.2 C Wrist 1.7 2.1 30.8 >15 Wrist Base 1st Digit 1.7 10.0 59 >53 Comparison Summary Table Stim Site NR Onset (ms) Peak (ms) Norm Onset (ms) O-P Amp ( V) Site1 Site2 Delta-0 (ms) Norm Delta (ms) Efrain (m/s) Norm Efrain (m/s) Left Median/Ulnar Palmar Comparison (Wrist) 36.2 C Median Palm 1.3 1.7 27.2 Median Palm Wrist 1.3 62 >53 Ulnar Palm 0.9 1.6 15.0 Ulnar Palm Wrist 0.9 89 >53 0.9 1.6 14.8 Median Palm Ulnar Palm 0.4 <0.4 Right Median/Ulnar Palmar Comparison (Wrist) 36.2 C Median Palm 1.1 1.6 40.2 Median Palm Wrist 1.1 73 >53 Ulnar Palm 1.1 1.5 15.6 Ulnar Palm Wrist 1.1 73 >53 Median Palm Ulnar Palm 0.0 <0.4 EMG Side Muscle Nerve Root Insrt Fibs Psw Fasc Amp Dur Poly Recrt Comm Left Abd Poll Brev Median C8-T1 Nml Nml Nml 0 Nml Nml 0 Nml Left 1stDorInt Ulnar C8-T1 Nml Nml Nml 0 Nml Nml 0 Nml Left ExtIndicis Radial (Post Int) C7-8 Nml Nml Nml 0 Nml Nml 0 Nml Left Biceps Musculocut C5-6 Nml Nml Nml 0 Nml Nml 0 Nml Left Deltoid Axillary C5-6 Nml Nml Nml 0 Nml Nml 0 Nml Left Middle Cervical Paraspinals Rami C4-C6 Nml Nml Nml 0 Nml Nml 0 Nml Left Lower Cervical Paraspinals Rami C6-T1 Nml Nml Nml 0 Nml Nml 0 Nml Right Abd Poll Brev Median C8-T1 Nml Nml Nml 0 Nml Nml 0 Nml Right 1stDorInt Ulnar C8-T1 Nml Nml Nml 0 Nml Nml 0 Nml Right ExtIndicis Radial (Post Int) C7-8 Nml Nml Nml 0 Nml Nml 0 Nml Right Biceps Musculocut C5-6 Nml Nml Nml 0 Nml Nml 0 Nml Right Deltoid Axillary C5-6 Nml Nml Nml 0 Nml Nml 0 Nml Right Middle Cervical Paraspinals Rami C4-C6 Nml Nml Nml 0 Nml Nml 0 Nml Right Lower Cervical Paraspinals Rami C6-T1 Nml Nml Nml 0 Nml Nml 0 Nml Waveforms: , me Caffeine Use Cousin With Cramp Organ low Wo going to Omi Shelby MD NEUROLOGY ORDERABLES * (ABNORMAL) COPPER BLOOD (09/13/2024 2:11 PM CHEMICAL ETCH OPERATOR) Copper 196(H) 80 - 158 ug/dL [facility] ACCOUNT BILL Comment:Detection Limit = 5 Blood BLOOD SPECIMEN / Unknown 09/13/2024 2:11 PM CHEMICAL ETCH OPERATOR 09/13/2024 Narrative [facility] ACCOUNT BILL - 09/16/2024 5:07 PM CHEMICAL ETCH OPERATOR Test(s) 962527-[id number], Serum or Plasma was developed and its performance characteristics determined by [facility]. It has not been cleared or approved by the Food and Drug Administration. Performed at: - [address] [id number] Operations Tech: Manisha Caba MD, Phone: [phone] Omi Shelby MD LAB - CHEMISTRY DIAN SOTO Performing Organization Address [facility] de Phone Number [facility] ACCOUNT BILL [address] [place] [phone] * VITAMIN B12 (09/13/2024 2:10 PM CHEMICAL ETCH OPERATOR) Vitamin B12 881 232 - 1,245 pg/mL [facility] ACCOUNT BILL Blood BLOOD SPECIMEN / Unknown 09/13/2024 2:10 PM CHEMICAL ETCH OPERATOR 09/13/2024 Narrative [facility] ACCOUNT BILL - 09/14/2024 9:08 AM CHEMICAL ETCH OPERATOR Performed at: - [facility] [id number] Operations Tech: Kiran Galeas PhD, Phone: [phone] Omi Shelby MD LAB - CHEMISTRY DIAN SOTO Performing Organization Address City/[facility]/ZIP Co de Phone Number [facility] ACCOUNT BILL [address] [place] [address] * HEPATITIS C ANTIBODY (04/03/2023 12:16 PM CDT) Hepatitis C Antibody Non-react marcelo Non-reac tive 04/03/2023 1:17 PM CDT [facility] Comment:Hepatitis C Antibody screen indicates no serologic evidence of past or current infection with Hepatitis C Virus. Patients with unexplained liver disease who are immunocompromised or suspected of having acute Hepatitis C infection may benefit from Nucleic Acid Test (EWELINA) for Hepatitis C Viral RNA to confirm Hepatitis C status. Blood BLOOD SPECIMEN / Unknown Lab Venipuncture / Unknown 04/03/2023 12:16 PM CDT 04/03/2023 12:23 PM CDT Christiano Castanon MD LAB - CHEMISTRY DIAN SOTO [facility] Organization Address City/State/ZIP Co de Phone Number [facility] [address] [place] [address], [facility] [phone] from Last 3 Months or Most Recently Relevant to Health Maintenance Care Teams Loader Relationship Specialty Start Date End Date Jaden Carter MD [address] [place], [place] [id number] PCP - General 04/13/12
--- OUTSIDE RECORDS SUMMARY | 2024-11-30 11:42 | XMS_ITS | Encounter Summary ---
Author Organization [facility] Address [address] [place] [address] Care Team Providers Care Print Traffic Manager Name Role Phone Jaden Carter MD Primary Care Provider [phone] Reason for Visit * Reason Onset Date Comments MEDICATION REFILL 12/15/2023 Encounter Details Date Type Department Care Team (Late st Contact Info) Description 12/15/2023 Refill [facility] - Rheumatology [address] [place] [phone] Kristopher Bowman MD [facility] [place] [phone] MEDICATION REFILL Social History Tobacco Use Types Packs/Day Years Used Date Smoking Tobacco: Never Smokeless Tobacco: Never Alcohol Use Standard Drinks/Week Comments Yes 0 (1 standard drink = 0.6 oz pur e alcohol) PHQ-2 Answer Date Recorded PHQ2 TOTAL SCORE 0 04/03/2023 Sex and Gender Information Value Date Recorded Sex Assigned at Not on file Gender Identity Female 03/29/2024 2:36 PM CDT Sexual Orientation Not on file documented as of this encounter Miscellaneous Notes * Telephone Encounter - Sasha Altamirano - 12/15/2023 4:03 PM CDT Refill Request Cindy Woodard BETHANY: 04/03/2023 NOV scheduled: 06/30/2023 canceled LRF: 05/29/2023 Qty Disp: 3.6mL # of refills:3 Allergies: No Known Allergies Pended Medication Order: Requested Prescriptions Pending Prescriptions Disp Refills ??? Rasuvo 15 MG/0.3ML 3.6 mL 3 Sig: Inject 15 mg subcutaneously every 7 days documented in this encounter Plan of Treatment Upcoming Encounters Date Type Department Care Team (Late st Contact Info) Description 12/13/2024 1:00 PM CDT Office Visit [facility] - Rheumatology [address] [place] [address], [facility] [place] [phone] Jasbir Sofia MD [address] [place] [address] [place] [phone] documented as of this encounter Visit Diagnoses Diagnosis Seropositive rheumatoid arthritis (HCC) Rheumatoid arthritis documented in this encounter Care Teams Print Traffic Manager Relationship Specialty Start Date End Date Jaden Carter MD [address] [place] [id number] PCP - General 04/13/12 documented as of this encounter
--- OUTSIDE RECORDS SUMMARY | 2024-11-30 11:42 | XMS_ITS | Encounter Summary ---
Author Organization [facility] Address [address] [facility] [place] [address] Care Team Providers Care Mental Telepathist Name Role Phone Jaden Carter MD Primary Care Provider [phone] Encounter Details Date Type Department Care Team (Late st Contact Info) Description 12/17/2023 Telephone [facility] - Rheumatology [facility] [facility] [place] [place] [id number] Kristopher Bowman MD [address] [place] [phone] Social History Tobacco Use Types Packs/Day Years [...] encounter Miscellaneous Notes * Telephone Encounter - Chanel Cardenas - 12/17/2023 11:36 AM CDT Current Provider: Dr. Bowman Reason for Call: Mrs. Cindy Woodard RHEUM Buddy Bowman's schedule doesn't go beyond 04/03/24. Are we waiting for new fellow or just scheduling w another fellow baljit QUINTERO as attending. Lg is the original attending. Please advise. Thanks. Patient Call Back Number: [phone] documented in this encounter Plan of Treatment Upcoming Encounters Date Type Department Care Team (Late st Contact Info) Description 12/13/2024 1:00 PM CDT Office Visit [facility] - Rheumatology [address] [place] [address], [place] [phone] Jasbir Sofia MD [address] [place] [address] [place] [phone] documented as of this encounter Visit Diagnoses Not on filedocumented in this encounter Care Teams Mental Telepathist Relationship Specialty Start Date End Date Jaden Carter MD [address] [place] [address] PCP - General 04/13/12 documented as of this encounter
--- OUTSIDE RECORDS SUMMARY | 2024-11-30 11:42 | XMS_ITS | Referral Summary ---
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 Active metoprolol XL (TOPROL-XL) 25 [...] (12/11/2020): Added automatically from request for surgery [id number] External hemorrhoids 03/24/2017 Rash and other nonspecific skin eruption 015 Rheumatoid arthritis 06/29/2015 Overview (02/05/2021): Seropositive, non erosive Other specified disorders of bone density and structure, unspecified site 08/15/2014 Other 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 supervisor (current) drug therapy 4 Rheumatoid nodule 04/11/2014 Hypothyroidism 12/07/2013 Encounter for therapeutic drug level monitoring 05/18/2013 Osteoarthritis 08/24/2012 Overview (02/05/2021): OA of the cervical spine and bilateral shoulders Social History Tobacco Use Types Packs/Day Years [...] on file Legal Sex Female 4:42 AM LEARNING AND 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 DIRECTOR Gender Identity Not on file Sexual Orientation Not on file 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 Not on file Not on file Last Filed Vital Signs [...] 05/18/2024 12:39 PM CDT Plan of Treatment Not on file Medical Devices Implanted Type Area Geospatial Technologist Device Identifier Shelf Expiration Date Model / Serial / Lot [employer] [id number] [place] Suture Compositcp Broadband Od4.5mm 2 Load Slide Tape Knotless Thread - [id number] Implanted:Qty: 1 on 12/26/2020 by Jens Cook MD at [facility] Left: Shoulder [employer] 03/15/2021 [id number] / / [id number] [employer] [id number] [place] Suture Compositcp Broadband Od4.5mm 2 Load Slide Tape Knotless Thread - [id number] Implanted:Qty: 1 on 12/26/2020 by Jens Cook MD at [facility] Left: Shoulder [employer] 03/15/2021 [id number] / / [id number] [employer] [id number] Quattro Link 4.5mm 1 Row Knotless Self Punch Unique Eyelet [place] - S00 - [id number] Implanted:Qty: 1 on 12/26/2020 by Jens Cook MD at [facility] Left: Shoulder [employer] 12/30/2024 [id number] / 00 / [id number] [employer] [id number] Quattro Link 4.5mm 1 Row Knotless Self Punch Unique Eyelet [place] - S00 - [id number] Implanted:Qty: 1 on 12/26/2020 by Jens Cook MD at [facility] Left: Shoulder [employer] 12/30/2024 [id number] / 00 / [id number] [employer] [id number] Juggerknot Maxbraid 2.9mm 2 Loaded Soft Tapered Needle 2 [place] - S00 - [id number] Implanted:Qty: 1 on 12/26/2020 by Jens Cook MD at [facility] Left: Shoulder [employer] 06/07/2025 [id number] / 00 / [id number] Insurance [facility] P[facility] Address: [address] [address] [facility] [address] PPO Care Teams Paperboard Boxes Estimator Relationship Specialty Start Date End Date Jaden Carter MD [address] [place] [address] PCP - General Internal Medicine 12/04/20
--- OUTSIDE RECORDS SUMMARY | 2024-11-30 11:42 | XMS_ITS | Clinical Summary ---
Author Organization [facility] Address [address] [place] [address] Care Team Providers Care Auditor Tax Name Role Phone Noemy Gottlieb Primary Care Provider [phone] Allergies No known active allergies Medications buPROPion XL (WELLBUTRIN XL) 150 MG 24 hr tablet Take 150 mg by mouth every morning. 2 Active vitamin D3, cholecalciferol , (CHOLECALCIFERO L) 1000 UNIT Tab tablet Take 1,000 Units by mouth daily. Active Cyanocobalamin 100 MCG Tab Take 250 mcg by mouth daily. Active desvenlafaxine ER (PRISTIQ) 25 MG 24 hr tablet TAKE 1 TABLET BY MOUTH IN THE MORNING FOR 7 DAYS 1 Active escitalopram (LEXAPRO) 10 MG tablet Take 10 mg by mouth daily. 2 Active hydrOXYzine (VISTARIL) 25 MG capsule TAKE 1 CAPSULE BY MOUTH TWICE DAILY NEEDED FOR ANXIETY 1 Active levothyroxine (SYNTHROID) 88 MCG tablet TAKE 1 TABLET BY MOUTH ONCE DAILY ONE HOUR BEFORE BREAKFAST 2 Active metoprolol succinate ER (TOPROL-XL) 25 MG 24 hr tablet TAKE 1/2 (ONE-HALF) TABLET BY MOUTH ONCE DAILY IN THE MORNING AND 1 AT BEDTIME 2 Active ofloxacin (FLOXIN) 0.3 % otic solution INSTILL 10 DROPS INTO LEFT EAR ONCE DAILY FOR 7 DAYS 2 Active Encounters Date Type Department Care Team Description 11/02/2024 2:11 PM INBOUND SALES REPRESENTATIVE - 11/02/2024 11:59 PM INBOUND SALES REPRESENTATIVE Hospital [place] [address] [place] [address] Noemy Gottlieb PA Discharge Disposition: Home or Self Care (Routine Discharge) 11/02/2024 Travel from Last 3 Months Immunizations Name Administration Dates Next Due MODERNA COVID-19 ([facility] DANA [place]), MRNA, LNP-S, PF, 50 MCG/ 0.25 ML DOSE 09/26/2021 Family History Medical History Relation Comments Breast Cancer Neg Hx Social History Tobacco Use Types Packs/Day Years Used Date Smoking Tobacco: Never Assessed Comments No Sex and Gender Information Value Date Recorded Sex Assigned at Not on file Legal Sex Female 8:16 PM CDT Gender Identity Not on file Sexual Orientation Not on file Last Filed Vital Signs Vital Sign Reading Time Taken Comments Blood Pressure 171/82 05/31/2022 5:00 PM CDT Pulse 80 05/31/2022 5:00 PM CDT Temperature 36.3 C (97.3 F) 05/31/2022 5:00 PM CDT Respiratory Rate 16 05/31/2022 5:00 PM CDT Oxygen Saturation 98% 05/31/2022 5:00 PM CDT Inhaled Oxygen Concentration - - Weight 73.5 kg (162 lb 0.6 oz) 05/31/2022 5:00 P M CDT Height 157.5 cm (5' 2 ) 05/31/2022 5:00 PM CDT Body Mass Index 29.64 05/31/2022 5:00 PM CDT Plan of Treatment Health Maintenance Due Date Last Done Comments Cervical Cancer Screening Pa p Smear (Age 30 to 64) Every 3 Years 1964 Colorectal Cancer Screening Colonoscopy (10 Years) 1964 Annual Physical 1967 Cervical Cancer Screening Pa p with HPV Testing (Age 30 to 64) Every 5 Years 1994 Cervical Cancer Screening with HPV 1994 Zoster Vaccines (1 of 2) 2014 COVID-19 Vaccine (2023-2 5 season) 2024 09/26/2021 Influenza Adult (#1) 2024 06/26/2015 Mammogram Screening 06/26/2024 06/26/2022 DTaP, Tdap and Td Vaccines ( 2 - Td or Tdap) 06/28/2026 06/28/2016 RSV Immunization or 60+ Years (1 - 1-dose 75+ series) 2039 Hepatitis C Completed 04/03/2023 Meningococcal B Vaccine Aged Out No l onger eligible based on patient's age to complete this topic Meningococcal Vaccine Aged Out No jennifer kathy eligible based on patient's age to complete this topic Pneumococcal Vaccine: Pediat rics (0 to 5 Years) and At-Risk Patients (6 to 64 Years) Aged Out No longer eligi ble based on patient's age to complete this topic RSV Immunizations Under 20 Months Aged Out No longer eligible based on patient's age to complete this topic Procedures Procedure Name Priority Date/Time Associated Diagnosis Comments CT CHEST W CON Routine 11/02/2024 2:42 PM INBOUND SALES REPRESENTATIVE Other nonspecific abnormal finding of lung field Localized enlarged lymph nodes MG DIAG W HARSHAL BILAT DIGI Routine 06/26/2022 2:54 PM CDT Localized enlarged lymph nodes Encounter for screening mammogram for malignant neoplasm of breast from Last 3 Months or Most Recently Relevant to Health Maintenance Results * CT CHEST W CON (11/02/2024 2:42 PM INBOUND SALES REPRESENTATIVE) Anatomical Region Laterality Modality Chest Computed Tomogra phy 11/03/2024 1:22 PM INBOUND SALES REPRESENTATIVE Impressions 11/03/2024 1:55 PM INBOUND SALES REPRESENTATIVE =====IMPRESSION:===== 1. Abnormality in the left axilla. Abscess or other etiology is possible. This is incompletely visualized. This was not present on prior study. Correlate clinically. Lymphadenopathy in the left axilla is similar prior exam. Etiology and significance is uncertain. 2. Finding in the region around the right shoulder is likely normal muscle with enhancement due to collateral flow of contrast. Correlate clinically. If this area is of concern, MRI or other additional evaluation should be considered. 3. Additional findings as described above. Ordered By: NOEMY GOTTLIEB Interpreted By: Jay Reyes MD, 11/03/2024 1:22 PM Narrative 11/03/2024 1:55 PM INBOUND SALES REPRESENTATIVE [facility] [address] [place] [id number] EXAMINATION: CT Chest with contrast EXAM DATE/TIME: 11/02/2024 2:17 PM REASON FOR EXAM: OTHER NONSPECIFIC ABNORMAL FINDING OF LUNG FIELD, LOCALIZED ENLARGED LYMPH NODES COMPARISON: 05/31/2022 TECHNIQUE: Computed tomography of the chest was obtained after administration of intravenous contrast, 75 mL of Isovue 370 contrast was administered intravenously and uneventfully.according to routine protocol. A dose lowering technique was used for this procedure, which may include, but is not limited to, dose reduction technique, automated exposure control, the use of iterative reconstruction, and ALARA (As Low As Reasonably Achievable) / Image Gently techniques. FINDINGS: Abnormality in the left axilla is seen. This measures 8.6 x 2.7 cm. Craniocaudal extent is difficult to measure as is incompletely visualized. Internal mottled air is seen. Findings could be due to abscess or other abnormality. This was not present on prior study. Left axillary lymphadenopathy in close proximity is seen which appears similar prior exam. Focal finding on image 2 adjacent to the right shoulder is seen possibly due to normal muscular structure with internal vascular enhancement. This is incompletely visualized however. Lungs and pleura: Pleural-based nodule on image 74 and a right lung is likely stable as compared with prior study. Nodule on image 61 in the right lung is also stable from prior exam. Nodule in the right lung on image 36 is also unchanged from prior study. Nodule on image 57 and right lung also unchanged. Stability of these nodules over a greater than 2 year period is highly suspicious for benign etiology. Mediastinum and rudy: No enlarged mediastinal lymph nodes. Vasculature: Unremarkable Axillae:As described above Superficial tissues: Unremarkable Visualized Upper abdominal structures:Evidence prior cholecystectomy is noted. Large hiatus hernia is unchanged from prior exam. Bone Windows:Diffuse degenerative changes of the thoracic spine. Inferior cervical and supraclavicular region: The thyroid gland is unremarkable. Procedure Note Jay Reyes MD - 11/03/2024 [facility] [address] [place] [address] EXAMINATION: CT Chest with contrast EXAM DATE/TIME: 11/02/2024 2:17 PM REASON FOR EXAM: OTHER NONSPECIFIC ABNORMAL FINDING OF LUNG FIELD,LOCALIZED ENLARGED LYMPH NODES COMPARISON: 05/31/2022 TECHNIQUE: Computed tomography of the chest was obtained afteradministration of intravenous contrast, 75 mL of Isovue 370 contrast wasadministered intravenously and uneventfully.according to routine protocol.A dose lowering technique was used for this procedure, which may include,but is not limited to, dose reduction technique, automated exposurecontrol, the use of iterative reconstruction, and ALARA (As Low AsReasonably Achievable) / Image Gently techniques. FINDINGS: Abnormality in the left axilla is seen. This measures 8.6 x 2.7cm. Craniocaudal extent is difficult to measure as is incompletelyvisualized. Internal mottled air is seen. Findings could be due to abscessor other abnormality. This was not present on prior study. Left axillarylymphadenopathy in close proximity is seen which appears similar priorexam. Focal finding on image 2 adjacent to the right shoulder is seen possiblydue to normal muscular structure with internal vascular enhancement. Thisis incompletely visualized however. Lungs and pleura: Pleural-based nodule on image 74 and a right lung islikely stable as compared with prior study. Nodule on image 61 in theright lung is also stable from prior exam. Nodule in the right lung onimage 36 is also unchanged from prior study. Nodule on image 57 and rightlung also unchanged. Stability of these nodules over a greater than 2 yearperiod is highly suspicious for benign etiology. Mediastinum and rudy: No enlarged mediastinal lymph nodes. Vasculature: Unremarkable Axillae:As described above Superficial tissues: Unremarkable Visualized Upper abdominal structures:Evidence prior cholecystectomy isnoted. Large hiatus hernia is unchanged from prior exam. Bone Windows:Diffuse degenerative changes of the thoracic spine. Inferior cervical and supraclavicular region: The thyroid gland isunremarkable. =====IMPRESSION:===== 1. Abnormality in the left axilla. Abscess or other etiology is possible.This is incompletely visualized. This was not present on prior study.Correlate clinically. Lymphadenopathy in the left axilla is similar priorexam. Etiology and significance is uncertain. 2. Finding in the region around the right shoulder is likely normalmuscle with enhancement due to collateral flow of contrast. Correlateclinically. If this area is of concern, MRI or other additional evaluationshould be considered. 3. Additional findings as described above. Ordered By: NOEMY GOTTLIEB Interpreted By: Jay Reyes MD, 11/03/2024 1:[address] Final Result * MG DIAG W HARSHAL BILAT DIGI (06/26/2022 2:54 PM CDT) Anatomical Region Laterality Modality Breast Bilateral Mammography, Rad iographic Imaging 06/26/2022 2:35 PM CDT Impressions 06/26/2022 2:38 PM CDT IMPRESSION: BI-RADS Category .Category 2 - benign findings. Annual screening mammography recommended. No definite etiology identified to account for the lymphadenopathy described at recent CT examination. Continued clinical follow-up recommended. MQSA MAMMOGRAM CLASSIFICATION BI-RADS CATEGORY 0-NEED ADDITIONAL IMAGING EVALUATION BI-RADS CATEGORY 1-NEGATIVE BI-RADS CATEGORY 2-BENIGN FINDINGS BI-RADS CATEGORY 3-PROBABLY BENIGN FINDING-SHORT INTERVAL FOLLOWUP SUGGESTED BI-RADS CATEGORY 4-SUSPICIOUS ABNORMALITY-BIOPSY SHOULD BE CONSIDERED BI-RADS CATEGORY 5-HIGHLY SUGGESTIVE OF MALIGNANCY-APPROPRIATE ACTION SHOULD BE TAKEN BI-RADS CATEGORY 6- KNOWN BIOPSY-PROVEN MALIGNANCY A. A negative report should not delay a biopsy if a dominant or clinically suspicious mass is present. B. Adenosis and dense breasts may obscure an underlying neoplasm. C. Computer aided detection utilized in the interpretation of this study. Appropriate action should be taken. Ordered By: NOEMY GOTTLIEB Interpreted By: Tabatha Farris, 06/26/2022 2:35 PM Narrative 06/26/2022 2:38 PM CDT MG DIAG W HARSHAL BILAT DIGI WITH COMPUTER-AIDED DIAGNOSIS AND 3-D TOMOSYNTHESIS 06/26/2022 1:19 PM HISTORY: Enlarged left axillary, retropectoral and retroclavicular lymph nodes. COMPARISON: CTA chest 05/31/2022. Mammogram 10/11/2014. FINDINGS: Digital 2-D mammography and 3-D tomosynthesis obtained of both breasts with CC, ML and MLO views along with spot compression CC, ML and MLO views of right breast. Scattered parenchymal densities in both breasts. Minor benign-appearing nodularity. Parenchymal pattern has similar appearance to the prior study. Nothing specific for malignancy in either breast. TISSUE DENSITY: There are scattered areas of fibroglandular density. Noemy GARNICA MAMMO Final Result from Last 3 Months or Most Recently Relevant to Health Maintenance Insurance Care Teams Auditor Tax Relationship Specialty Start Date End Date Noemy Gottlieb PA [address] [place] [id number] PCP - General PHYSICIAN YARDMASTER 05/30/22
--- OUTSIDE RECORDS SUMMARY | 2024-11-30 11:42 | XMS_ITS | Encounter Summary ---
Author Organization [facility] Address [address] [place] [address] Care Team Providers Care Technical Assistance Consultant Name Role Phone Jaden Carter MD Primary Care Provider [phone] Encounter Details Date Type Department Care Team (Late Contact Info) Description 09/28/2024 Lab Requisition [facility] - DermPath Lab [address] [place] [address] Gala Venegas MD [address] [place] [address] [place] [address] Social History Tobacco Use Types Packs/Day Years [...] as of this encounter Plan of Treatment Upcoming Encounters Date Type Department Care Team (Late Contact Info) Description 12/13/2024 1:00 PM CDT Office Visit [facility] - Rheumatology [address] [place] [phone] Jasbir Sofia MD [address] [place] [address] [place] [address] documented as of this encounter Procedures Procedure Name Priority Date/Time Associated Diagnosis Comments DERMATOPATHOLOGY Routine 09/28/2024 1:58 PM MEDICAL INSURANCE VERIFIER documented in this encounter Results * DERMATOPATHOLOGY (09/28/2024 1:58 PM MEDICAL INSURANCE VERIFIER) Case Report Dermatopathology Report Case: [id number] Authorizing Provider: Gala Venegas MD Collected: 09/28/2024 01:58 PM Ordering Location: [facility] - Received: 09/29/2024 03:04 PM DermPath Lab Pathologist: Barbara Trejo MD Specimen: Skin, left leg 4:24 PM MEDICAL INSURANCE VERIFIER DERMATOPATHOLOGY LABORATORY Final Diagnosis Specimen A. SKIN, left leg: ULCER WITH SUPERFICIAL DERMAL NECROSIS AND DERMAL LYMPHOHISTIOCYTIC INFLAMMATION WITH NEUTROPHILS (L98.499) (see microscopic description and comment) 4:24 PM MEDICAL INSURANCE VERIFIER DERMATOPATHOLOGY LABORATORY Clinical History Hx of RA on MTX; Neurophilic Dermatis/PN/Lymphom a 4:24 PM MEDICAL INSURANCE VERIFIER DERMATOPATHOLOGY LABORATORY Gross Description Specimen A: Received is one formalin filled container labeled with the patient's name and designated left leg. The specimen consists of a punch biopsy measuring 4x4x5 mm. Jar 0. 4:24 PM [facility] DERMATOPATHOLOGY LABORATORY Microscopic Description Specimen A. SKIN, [...] repeat interval sampling. Clinicopathologic correlation is recommended. 5 4:24 PM [facility] DERMATOPATHOLOGY LABORATORY Disclaimer An external and internal positive and negative controls are appropriate for the histochemical, immunohistochemical and immunofluorescence stain(s) in this case (if any), except where stated explicitly. The performance characteristics of the stain(s) cited in this report were developed and its performance characteristic determined by the Dermatopathology Laboratory at [facility], directed by Dr. Eusebio Harris. These tests need not be, and therefore are not, approved by the [place] Food and Drug Administration. The tests are used for clinical purposes. Billing Codes Specimen Charges Stain Charges 76122 1 06997 73619 [id number] [id number] 01493 1 1 1 1 1 1 5 4:24 PM MEDICAL INSURANCE VERIFIER DERMATOPATHOLOGY LABORATORY Embedded Images 5 4:24 PM MEDICAL INSURANCE VERIFIER DERMATOPATHOLOGY LABORATORY Pathology/Cytolo gy TISSUE SPECIMEN FROM SKIN / Unknown 09/28/2024 1:58 PM MEDICAL INSURANCE VERIFIER 09/29/2024 3:04 PM MEDICAL INSURANCE VERIFIER Gala Venegas MD LAB - PATHOLOGY/CYTO LOGY ORDERABLES DERMATOPATHOLOGY LABORATORY [facility] - Department of Dermatology [facility] [address] [place] [address], [address] Floor [address] [phone] documented in this encounter Visit Diagnoses Not on filedocumented in this encounter Care Teams Technical Assistance Consultant Relationship Specialty Start Date End Date Jaden Carter MD [address] [place] [address] [address] [place] [address] PCP - General 04/13/12 documented as of this encounter
== END 2024-11-30 10:22 | disposition home or self-care (01) ==
PROVIDERS: PCP Physician Assistant Medical; Visit Provider Surgery
DX: R22.32 Localized swelling, mass and lump, left upper limb (principal)
CPT/HCPCS: 19000; 76942; 87070; 87075; 87205; C1729

== ENCOUNTER 2024-12-17 06:35 | Outpatient (CLI) | payer OTHER, SELFPAY ==
--- NOTE | ~2024-12-17 | MR_ITS ---
EXAMINATION: MR shoulder LT wo/w con DATE: 12/17/2024 07:51 INDICATION: Cutaneous abscess at the left axilla TECHNIQUE: Magnetic resonance imaging (MRI) of the left shoulder was performed without and with 17 mL ProHance intravenous contrast. Sequences included axial, sagittal and coronal T1-weighted FS FSE and fluid sensitive FSE STIR, coronal T2-weighted FS FSE, axial T1-weighted FSE and postcontrast axial, sagittal and coronal T2-weighted FS FSE. COMPARISON: None. FINDINGS: Coracoacromial arch: The acromion undersurface is curved in morphology (type II) in addition there is additional increased curvature and thickening of the anterior acromion which could represent either remodeling secondary to chronic rotator cuff tear with change of prior acromioplasty. The coracoacromial ligament is jacquie l. Moderate acromioclavicular osteoarthritis. Rotator cuff: There are postoperative change of prior rotator cuff repair with magnetic field artifact associated w ith likely anchoring screws along the greater tuberosity. There is a recurrent complete tear of the s upraspinatus tendon. The tear margin is retracted partially 4.5 cm to between the level of the acromi oclavicular joint and the rim of the glenoid. The repaired infraspinatus tendon appears to remain int act. The teres minor tendon is normal. Severe tendinopathy with frayed appearance of the cephalad thi rd of the subscapularis tendon without a well-defined tear. There is mild fatty atrophy of the supra spinatus and cephalad-most portion of the subscapularis tendon. Biceps tendon, glenoid labrum and glenohumeral cartilage: The long head of the biceps tendon is torn and retracted well below the level of the intertubercular groove. There is diffuse degenerative tearing of the glenoid labrum. There appears to be significant diffuse cartilage loss involving the humeral head and glenoid however assessment is limited due to th e larger [id number] of imaging in a standard shoulder MRI and absence of PD-weighted imaging on th is study optimized for assessment of the axillary abscess. Fluid: Small joint effusion amongst a large amount of enhancing synovitis which surrounds the humeral head e xtending to the rotator cuff tear defect into the subacromial/subdeltoid bursa as well as extending t o the deep subscapular recess. This communicates with a large collection of fluid with surrounding pe ripheral enhancement which extends 5.5 cm inferolaterally from the deep subscapular recess and which measures 1.5 x 1.0 cm maximal orthogonal dimensions. This appears to correspond to the previously asp irated left axillary abscess and suggests corresponding septic arthritis. Bones/other: Marrow edema at the acromion, humeral head and coracoid process but without geographic loss of T1 mar row fat signal to more specifically suggest osteomyelitis. There is a nonspecific erosion at the junc tion of the anterior articular surface of the humeral head and the medial margin of the lesser tubero sity as well as along the greater tuberosity which could be due to the rotator cuff disease, osteomye litis or other inflammatory arthritis. There are prominent likely reactive left axillary, subpectora l and supraclavicular lymphadenopathy. IMPRESSION: 1. Recurrent complete full-thickness tear of the supraspinatus tendon with changes of prior rotator c uff repair including suture anchors along the greater tuberosity. 2. Severe tendinopathy with frayed appearance of the cephalad third of the subscapularis tendon but w ithout well defined tear defect. 3. Small joint effusion with severe surrounding enhancing synovitis at the glenohumeral joint and ext ending through the full-thickness rotator cuff tear into the subacromial/subdeltoid bursa as well as appearing to communicate with the previously drained axillary fluid collection with minimal right trudy ls which concerning for abscess and associated septic arthritis. There is edema at the humeral head a long with some erosions which are also concerning for associated osteomyelitis although there is no g eographic loss of T1 fat signal to more specifically suggest this. Differential would include other i nflammatory arthritis such as rheumatoid or gout. 4. Likely reactive left axillary, subpectoral and supraclavicular lymphadenopathy. 5. Complete tear and distal retraction Kristin tenodesis of the long head biceps tendon. 6. Left glenohumeral and acromioclavicular osteoarthritis with diffuse labral degeneration. Assessmen t of the labrum and cartilage is however more limited than on a standard shoulder MRI given the large r [id number] optimized for assessment of the axillary fluid collection. Reviewed, dictated and finalized at location A. IMPRESSION: 1. Recurrent complete full-thickness tear of the supraspinatus tendon with azevedo ges of prior rotator cuff repair including suture anchors along the greater tub erosity. 2. Severe tendinopathy with frayed appearance of the cephalad third of the subs capularis tendon but without well defined tear defect. 3. Small joint effusion with severe surrounding enhancing synovitis at the pancho ohumeral joint and extending through the full-thickness rotator cuff tear into the subacromial/subdeltoid bursa as well as appearing to communicate with the p reviously drained axillary fluid collection with minimal right cells which conc erning for abscess and associated septic arthritis. There is edema at the humer al head along with some erosions which are also concerning for associated osteo myelitis although there is no geographic loss of T1 fat signal to more specific ally suggest this. Differential would include other inflammatory arthritis such as rheumatoid or gout. 4. Likely reactive left axillary, subpectoral and supraclavicular lymphadenopat hy. 5. Complete tear and distal retraction Kristin tenodesis of the long head shan ps tendon. 6. Left glenohumeral and acromioclavicular osteoarthritis with diffuse labral d egeneration. Assessment of the labrum and cartilage is however more limited casey n on a standard shoulder MRI given the larger [id number] optimized for asses sment of the axillary fluid collection.
--- OUTSIDE RECORDS SUMMARY | 2024-12-17 06:38 | XMS_ITS | Clinical Summary ---
Author Organization 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 Active metoprolol XL (TOPROL-XL) 25 [...] (12/11/2020): Added automatically from request for surgery [id number] External hemorrhoids 03/24/2017 Rash and other nonspecific skin eruption 015 Rheumatoid arthritis 06/29/2015 Overview (02/05/2021): Seropositive, non erosive Other specified disorders of bone density and structure, unspecified site 08/15/2014 Other fpc (current) drug therapy 4 Rheumatoid nodule 04/11/2014 [...] on file 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 Gender Identity Not on file Sexual Orientation [...] this topic Medical Devices Implanted Type Area Change Manager Device Identifier Shelf Expiration Date Model / Serial / Lot [employer] [id number] [place] Suture Compositcp Broadband Od4.5mm 2 Load Slide Tape Knotless Thread - [id number] Implanted:Qty: 1 on 12/26/2020 by Jens Cook MD at [facility] Left: Shoulder [employer] 03/15/2021 [id number] / / [id number] [employer] [id number] [place] Suture Compositcp Broadband Od4.5mm 2 Load Slide Tape Knotless Thread - [id number] Implanted:Qty: 1 on 12/26/2020 by Jens Cook MD at [facility] [place] Left: Shoulder [employer] 03/15/2021 [id number] / / [id number] [employer] [id number] Quattro Link 4.5mm 1 Row Knotless Self Punch Unique Eyelet [place] - S00 - [id number] Implanted:Qty: 1 on 12/26/2020 by Jens Cook MD at [facility] [place] Left: Shoulder [employer] 12/30/2024 [id number] / 00 / [id number] [employer] [id number] Quattro Link 4.5mm 1 Row Knotless Self Punch Unique Eyelet [place] - S00 - [id number] Implanted:Qty: 1 on 12/26/2020 by Jens Cook MD at [facility] [place] Left: Shoulder [employer] 12/30/2024 [id number]-9145SP / [id number] [employer] [id number] Juggerknot Maxbraid 2.9mm 2 Loaded Soft Tapered Needle 2 [place] - S00 - [id number] Implanted:Qty: 1 on 12/26/2020 by Jens Cook MD at [facility] [place] Left: Shoulder [employer] 06/07/2025 [id number] / 00 / [id number] [place] [address] [facility] PPO [facility] HMO/PPO Address: [address] [address] [place] [address] [address] PPO Care Teams Allied Health Teacher Relationship Specialty Start Date End Date Jaden Carter MD [address] [place], [place] [phone] PCP - General Internal Medicine 12/04/20
--- OUTSIDE RECORDS SUMMARY | 2024-12-17 06:38 | XMS_ITS | Encounter Summary ---
Author Organization [facility] Address [address] [place] [address] Care Team Providers Care In Home Caregiver Name Role Phone Unknown, Beverlynfnoé Primary Care Provider Unavail Jaden Holt MD Primary Care Provider [phone] Encounter Details Date Type Department Care Team (Late st Contact Info) Description 10/18/2020 Telephone [facility] [address] [place] [address] Sushila Marley, RT Social History Tobacco Use Types Packs/Day Years Used Date Smoking Tobacco: Never Comments Unknown Sex and Gender Information Value Date Recorded Sex Assigned at Not on file Legal Sex Female 4:42 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
--- OUTSIDE RECORDS SUMMARY | 2024-12-17 06:38 | XMS_ITS | Encounter Summary ---
Author Organization [facility] Address [address] [facility] [place] [address] Care Team Providers Care Office Nurse Name Role Phone Jaden Carter MD Primary Care Provider [phone] Encounter Details Date Type Department Care Team (Late st Contact Info) Description 12/17/2023 Telephone [facility] - Rheumatology [facility] [facility] [place] [phone] Kristopher Bowman MD [address] [place] [phone] Social History Tobacco Use Types Packs/Day [...] Please advise. Thanks. Patient Call Back Number: [phone] documented in this encounter Plan of Treatment Upcoming Encounters Date Type Department Care Team (Late st Contact Info) Description 06/06/2025 1:00 PM CDT Office Visit [facility] - Rheumatology [address] [place] [address], [place] [phone] Jasbir Sofia MD [address] [place] [address] [place] [phone] documented as of this encounter Visit Diagnoses Not on filedocumented in this encounter Care Teams Office Nurse Relationship Specialty Start Date End Date Jaden Carter MD [address] [place] [address] PCP - General 04/13/12 documented as of this encounter
--- OUTSIDE RECORDS SUMMARY | 2024-12-17 06:38 | XMS_ITS | Clinical Summary ---
Author Organization [facility] Tony Lopez Address [address] [place] [address] Care Team Providers Care Four Horse Hitch Driver Name Role Phone Unavailable Primary Care Provider [...] Comments DTAP/TDAP/TD VACCINES (1 - Tdap) 1983 HPV/Cotest (21-29) 1985 CERVICAL CANCER SCREENING 1994 HPV/Cotest (30-65) 1994 PAP SMEAR 1994 COLORECTAL SCREENING 2009 Colorectal Cancer Screening 2009 FIT-DNA Q 3 years 2009 FIT/FOBT Q 1 year 2009 Flex Sig/CT Colonography Q 5 years 2009 ZOSTER VACCINE (1 of 2) 2014 BREAST CANCER SCREENING 06/26/2023 06/26/2022 INFLUENZA VACCINE (#1) 2024 06/26/2015 COVID-19 Vaccine (2 - 2023-2 5 season) 2024 09/26/2021 RSV VACCINE (60+ or ) (1 - 1-dose 75+ series) 2039 HEPATITIS B VACCINES Aged Out No long er eligible based on patient's age to complete this topic Insurance [facility] OPTIONS PPO [id number] [place] [id number]
--- OUTSIDE RECORDS SUMMARY | 2024-12-17 06:38 | XMS_ITS | Clinical Summary ---
Author Organization [facility] Address [address] [place] [address] Care Team Providers Care Embossing Machine Operator Helper Name Role Phone Noemy Gottlieb Primary Care Provider [phone] Allergies No known active allergies Medications buPROPion [...] Department Care Team Description 11/02/2024 2:11 PM RECOVERY RN - 11/02/2024 11:59 PM RECOVERY RN Hospital [place] [address] [place] [address] Noemy Gottlieb PA Discharge Disposition: Home or Self Care (Routine Discharge) 11/02/2024 Travel from Last 3 Months Immunizations Name Administration Dates Next Due MODERNA COVID-19 (ASSISTANT VICE PRESIDENT DANA SAGRARIO), MRNA, LNP-S, PF, 50 MCG/ [...] Vaccines (1 of 2) 2014 COVID-19 Vaccine (2 - 2023-2 5 season) 2024 09/26/2021 Mammogram Screening 06/26/2024 06/26/2022 DTaP, Tdap and [...] CHEST W CON Routine 11/02/2024 2:42 PM RECOVERY RN Other nonspecific abnormal finding of lung field Localized enlarged lymph nodes MG DIAG W HARSHAL BILAT DIGI Routine 06/26/2022 2:54 PM CDT Localized enlarged lymph nodes Encounter for screening mammogram for malignant neoplasm of breast from Last 3 Months or Most Recently Relevant to Health Maintenance Results * CT CHEST W CON (11/02/2024 2:42 PM RECOVERY RN) Anatomical Region Laterality Modality Chest Computed Tomogra phy 11/03/2024 1:22 PM RECOVERY RN Impressions 11/03/2024 1:55 PM RECOVERY RN =====IMPRESSION:===== 1. Abnormality in the left axilla. [...] 11/03/2024 1:22 PM Narrative 11/03/2024 1:55 PM RECOVERY RN [facility] [address] [place] [id number] EXAMINATION: CT Chest with contrast EXAM DATE/TIME: [...] Procedure Note Jay Reyes MD - 11/03/2024 [facility] [address] [place] [address] EXAMINATION: CT Chest with contrast EXAM DATE/TIME: [...] PM Narrative 06/26/2022 2:38 PM CDT MG LUZ MARINAG W HARSHAL BILAT DIGI WITH COMPUTER-AIDED DIAGNOSIS [...] Most Recently Relevant to Health Maintenance Insurance R Care Teams Embossing Machine Operator Helper Relationship Specialty Start Date End Date Noemy Gottlieb PA [address] [place] [id number] PCP - General PHYSICIAN INSTRUCTOR TRAINER CANINE SERVICE 05/30/22
--- OUTSIDE RECORDS SUMMARY | 2024-12-17 06:38 | XMS_ITS | Encounter Summary ---
Author Organization [facility] Address [address] [facility] [place] [address] Care Team Providers Care Wire Frame Maker Name Role Phone Jaden Carter MD Primary Care Provider [phone] Encounter Details Date Type Department Care Team (Late Contact Info) Description 12/17/2024 Orders Only [facility] - Rheumatology [address] [place] [phone] Christiano Castanon MD [address] [place] [address] [address] [place] [address] Rheumatoid arthritis involving multiple joints (HCC); Therapeutic drug monitoring Social History Tobacco Use Types Packs/Day Years Used Date Smoking Tobacco: Never Smokeless Tobacco: Never Alcohol Use Standard Drinks/Week Comments Yes 0 (1 standard drink = 0.6 oz pur e alcohol) PHQ-2 Answer Date Recorded Patient Health Questionnaire-2 Score 0 12/13/2024 Sex and Gender Information Value Date Recorded Sex Assigned at Not on file Gender Identity Female 03/29/2024 2:36 PM CDT Sexual Orientation Not on file documented as of this encounter Plan of Treatment Upcoming Encounters Date Type Department Care Team (Late Contact Info) Description 06/06/2025 1:00 PM CDT Office Visit [facility] - Rheumatology [address] [place] [phone] Jasbir Sofia MD [address] [place] [address] [place] [address] documented as of this encounter Visit Diagnoses Diagnosis Rheumatoid arthritis involving multiple joints (HCC) Therapeutic drug monitoring Encounter for therapeutic drug monitoring documented in this encounter Care Teams Wire Frame Maker Relationship Specialty Start Date End Date Jaden Carter MD [address] [place] [address] PCP - General 04/13/12 documented as of this encounter
--- OUTSIDE RECORDS SUMMARY | 2024-12-17 06:38 | XMS_ITS | Encounter Summary ---
Author Organization [facility] Address [address] [facility] [place] [address] Care Team Providers Care Safe And Vault Service Mechanic Name Role Phone Jaden Carter MD Primary Care Provider [phone] Encounter Details Date Type Department Care Team (Late Contact Info) Description 09/28/2024 Lab Requisition [facility] - DermPath Lab [address] [place] [address] Gala Venegas MD [address] [place] [address] [place] [address] Social History Tobacco Use Types Packs/Day Years [...] Office Visit [facility] - Rheumatology [address] [place] [phone] Jasbir Sofia MD [address] [place] [address] [place] [address] documented as of this encounter Procedures Procedure Name Priority Date/Time Associated Diagnosis Comments DERMATOPATHOLOGY Routine 09/28/2024 1:58 PM INFRASTRUCTURE SECURITY ARCHITECT documented in this encounter Results * DERMATOPATHOLOGY (09/28/2024 1:58 PM INFRASTRUCTURE SECURITY ARCHITECT) Case Report Dermatopathology Report Case: [id number] Authorizing Provider: Gala Venegas MD Collected: 09/28/2024 01:58 PM Ordering Location: [facility] - Received: 09/29/2024 03:04 PM DermPath Lab Pathologist: Barbara Trejo MD Specimen: Skin, left leg 4:24 PM INFRASTRUCTURE SECURITY ARCHITECT DERMATOPATHOLOGY LABORATORY Final Diagnosis Specimen A. 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 The specimen consists of a punch biopsy measuring 4x4x5 mm. Jar 0. 4:24 PM [facility] DERMATOPATHOLOGY LABORATORY Microscopic Description Specimen A. [...] Clinicopathologic correlation is recommended. 5 4:24 PM [facility] DERMATOPATHOLOGY LABORATORY Disclaimer An external and internal positive and negative controls are appropriate for the histochemical, immunohistochemical and immunofluorescence stain(s) in this case (if any), except where stated explicitly. The performance characteristics of the stain(s) cited in this report were developed and its performance characteristic determined by the Dermatopathology Laboratory at [facility], directed by Dr. Eusebio Harris. These tests need not be, and therefore are not, approved by the [place] Food and Drug Administration. The tests are used for clinical purposes. Billing Codes Specimen Charges Stain Charges 68891 1 [id number] [id number] 94342 06363 77206 16622 1 1 1 1 1 1 5 4:24 PM INFRASTRUCTURE SECURITY ARCHITECT DERMATOPATHOLOGY LABORATORY Embedded Images 5 4:24 PM INFRASTRUCTURE SECURITY ARCHITECT DERMATOPATHOLOGY LABORATORY Pathology/Cytolo gy TISSUE SPECIMEN FROM SKIN / Unknown 09/28/2024 1:58 PM INFRASTRUCTURE SECURITY ARCHITECT 09/29/2024 3:04 PM INFRASTRUCTURE SECURITY ARCHITECT Gala Venegas MD LAB - PATHOLOGY/CYTO LOGY ORDERABLES DERMATOPATHOLOGY LABORATORY [facility] - Department of Dermatology [facility] Medicine [address] [place] [address], [address] [phone] documented in this encounter Visit Diagnoses Not on filedocumented in this encounter Care Teams Safe And Vault Service Mechanic Relationship Specialty Start Date End Date Jaden Carter MD [address] [place] [address] [address] [place] [address] PCP - General 04/13/12 documented as of this encounter
--- OUTSIDE RECORDS SUMMARY | 2024-12-17 06:38 | XMS_ITS | Referral Summary ---
Author Organization [facility] Address [address] [address] Care Team Providers Care Tariff Compiler Name Role Phone Jaden Carter MD Primary Care Provider [phone] Allergies No known active allergies Medications buPROPion [...] 1 tablet (88 mcg total) by mouth intervention analyst before breakfast Active metoprolol XL (TOPROL-XL) 25 [...] (12/11/2020): Added automatically from request for surgery [id number] External hemorrhoids 03/24/2017 Rash and other nonspecific skin eruption 015 Rheumatoid arthritis 06/29/2015 Overview (02/05/2021): Seropositive, non erosive Other specified disorders of bone density and structure, unspecified site 08/15/2014 Other chcf (current) drug therapy 4 Rheumatoid nodule 04/11/2014 [...] file Legal Sex Female 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 Gender Identity Not on file Sexual Orientation [...] on file Medical Devices Implanted Type Area Electromechanical Equipment Assembler Device Identifier Shelf Expiration Date Model / Serial / Lot [employer] [id number] [place] Suture Compositcp Broadband Od4.5mm 2 Load Slide Tape Knotless Thread - [id number] Implanted:Qty: 1 on 12/26/2020 by Jens Cook MD at [facility] [place] Left: Shoulder [employer] 03/15/2021 [id number] / / [id number] [employer] [id number] [place] Suture Compositcp Broadband Od4.5mm 2 Load Slide Tape Knotless Thread - [id number] Implanted:Qty: 1 on 12/26/2020 by Jens Cook MD at [facility] [place] Left: Shoulder [employer] 03/15/2021 [id number] / / [id number] [employer] Cm-[id number] Quattro Link 4.5mm 1 Row Knotless Self Punch Unique Eyelet [place] - S00 - [id number] Implanted:Qty: 1 on 12/26/2020 by Jens Cook MD at [facility] [place] Left: Shoulder [employer] 12/30/2024 [id number]-9145SP / 00 / [id number] [employer] [id number] Quattro Link 4.5mm 1 Row Knotless Self Punch Unique Eyelet [place] - S00 - [id number] Implanted:Qty: 1 on 12/26/2020 by Jens Cook MD at [facility] [place] Left: Shoulder [employer] 12/30/2024 CM-9145SP / 00 / [id number] [employer] [id number] Juggerknot Maxbraid 2.9mm 2 Loaded Soft Tapered Needle 2 [place] - S00 - [id number] Implanted:Qty: 1 on 12/26/2020 by Jens Cook MD at [facility] [place] Left: Shoulder [employer] 06/07/2025 [id number] / 00 / [id number] Insurance [facility] Address: [address] [address] [facility] [address] PPO Care Teams Tariff Compiler Relationship Specialty Start Date End Date Jaden Carter MD [address] [place] [address] PCP - General Internal Medicine 12/04/20
--- OUTSIDE RECORDS SUMMARY | 2024-12-17 06:38 | XMS_ITS | Clinical Summary ---
Author Organization [facility] Address [address] [facility] [place] [address] Care Team Providers Care Boiler Water Tester Name Role Phone Jaden Carter MD Primary Care Provider [phone] Source Comments [facility],non-owned Affiliates and Associated Physician Practices is amultiple site organization consisting of ambulatory clinics and hospital sitesin [place], [place], [place] and [place]. This disclosure is being madepursuant to the Care Everywhere program and may not contain all information available regarding this patient. Last updated 18.[facility] Allergies No known active allergies Medications * Be aware that medications may not be up to date on this document. Alwaysverify current medications with the patient. Medication Sig Dispensed Refills Start Date End Date Status buPROPion XL 24hr (Wellbutrin-XL) 150 MG tablet [...] 01/13/2023 Active Cholecalciferol (Vitamin D3) 250 MCG (10484 UT) Take 250 mg by mouth once daily Active Magnesium 200 MG TABS Take 200 mg by mouth once daily Active Calcium Carb-Cholecalcif max (Calcium 600+D) 600-10 MG-MCG Take 1 (one) [...] daily 180 tablet 1 09/21/2024 03/20/2025 Active naproxen (NAPROSYN) 500 MG tablet 60 tablet 3 06/12/2016 12/13/2024 Discontinued (List Clean-Up) clobetasol (Temovate) 0.05 % cream APPLY CREAM TOPICALLY EVERY OTHER DAY 10/13/2024 12/13/2024 Discontinued (List Clean-Up) Active Problems Problem Noted Date Diagnosed Date Rheumatoid arthritis 06/29/2015 Overview (12/15/2017): Seropositive, non erosive Rash and other nonspecific skin eruption 015 Other specified disorders of bone density and structure, unspecified site 08/15/2014 Rheumatoid nodule 04/11/2014 Other m[facility] (current) drug therapy 4 Hypothyroidism 12/07/2013 Encounter for therapeutic drug level monitoring 05/18/2013 Osteoarthritis 08/24/2012 Overview (12/15/2017): OA of the cervical spine and bilateral shoulders Encounters Date Type Department Care Team Description 12/17/2024 Orders Only [facility] - Rheumatology [address] [place] [phone] Christiano Castanon MD Rheumatoid arthritis involving multiple joints (HCC); Therapeutic drug monitoring 12/13/2024 1:00 PM CDT Office Visit [facility] - Rheumatology [address] [place] [phone] Jasbir Sofia MD Rheumatoid arthritis involving multiple joints (Primary Dx); Therapeutic drug monitoring 12/13/2024 Travel 10/22/2024 Orders Only [facility] - Rheumatology [address] [place] [phone] Christiano Castanon MD Rheumatoid arthritis involving multiple joints; Therapeutic drug monitoring 09/28/2024 Lab Requisition [facility] - DermPath Lab [address] [place] [address] Gala Venegas MD 09/25/2024 11:14 AM PRODUCTION ASSOCIATE - 09/25/2024 11:59 PM PRODUCTION ASSOCIATE Hospital Encounter [facility] MRI [address] [place] [address] Omi Shelby MD Discharge Disposition: Home or Self Care 09/25/2024 11:14 AM PRODUCTION ASSOCIATE - 09/25/2024 11:59 PM PRODUCTION ASSOCIATE Hospital Encounter [facility] MRI [address] [place] [address] Omi Shelby MD Discharge Disposition: Home or Self Care 09/25/2024 Travel 09/21/2024 4:18 PM PRODUCTION ASSOCIATE - 09/21/2024 11:59 PM PRODUCTION ASSOCIATE Hospital Encounter [facility] DIAGNOSTIC RAD OP [address] [place] [address] Christiano Castanon MD Discharge Disposition: Home or Self Care 09/21/2024 3:20 PM PRODUCTION ASSOCIATE Office Visit [facility] - Rheumatology [address] [place] [address] Christiano Castanon MD Rheumatoid arthritis involving multiple joints (Primary Dx); Osteoarthritis of hand, unspecified laterality, unspecified osteoarthritis type; Therapeutic drug monitoring 09/21/2024 Travel from Last 3 Months Immunizations Name [...] Sign Reading Time Taken Comments Blood Pressure 138/89 12/13/2024 12:49 PM CDT Pulse 81 12/13/2024 12:49 PM CDT Temperature 36.7 C (98.1 F) 12/13/2024 12:49 PM CDT Respiratory Rate 18 07/09/2016 2:42 PM CDT Oxygen Saturation 96% 12/13/2024 12:49 PM CDT Inhaled Oxygen Concentration - - Weight 81.5 kg (179 lb 9.6 oz) 12/13/2024 12:49 PM CDT Height 157.5 cm (5' 2 ) 12/13/2024 12:49 PM CDT Body Mass Index 32.85 12/13/2024 12:49 PM CDT Plan of Treatment Upcoming Encounters Date Type Department Care Team (Late st Contact Info) Description 06/06/2025 1:00 PM CDT Office Visit [facility] - Rheumatology [address] [place] [address], [place] [address] Jasbir Sofia MD [address] [place] [address] [place] [address] Health Maintenance Due Date Last Done Comments [...] COVID-19 VACCINE (2 - season) 2024 09/26/2021 Respiratory Syncytial Virus (RSV) Vaccine Pt: or over 60 yrs (1 - Risk 60-74 years 1-dose series) 2024 MAMMOGRAM 06/26/2024 06/26/2022, 06/26/2022 INFLUENZA VACCINE (Season Ended) 2025 06/26/2015 SCREENING FOR DIABETES 11/02/2027 , 09/22/2024, 09/06/2024, [...] ERYTHROCYTE SEDIMENTATION RATE Routine 11/02/2024 1:58 PM PRODUCTION ASSOCIATE Rheumatoid arthritis involving multiple joints Therapeutic drug monitoring C-REACTIVE PROTEIN Routine 11/02/2024 1: 58 PM PRODUCTION ASSOCIATE Rheumatoid arthritis involving multiple joints Therapeutic drug monitoring COMPREHENSIVE METABOLIC PANEL Routine 11/02/2024 1:58 PM PRODUCTION ASSOCIATE Rheumatoid arthritis involving multiple joints Therapeutic drug monitoring CBC W AUTO DIFFERENTIAL Routine 11/02/2024 1:58 PM PRODUCTION ASSOCIATE Rheumatoid arthritis involving multiple joints Therapeutic drug monitoring DERMATOPATHOLOGY Routine 09/28/2024 1:58 PM PRODUCTION ASSOCIATE MRI THORACIC SPINE WO CONTRAST Routine 09/25/2024 1:17 PM PRODUCTION ASSOCIATE Ataxia Neck pain MRI BRAIN WO CONTRAST Routine 09/25/2024 1:16 PM PRODUCTION ASSOCIATE Ataxia Neck pain URINALYSIS W/MICROSCOPIC NO CULTURE Routine 09/22/2024 11:45 AM PRODUCTION ASSOCIATE Rheumatoid arthritis involving multiple joints Therapeutic drug monitoring ERYTHROCYTE SEDIMENTATION RATE Routine 09/22/2024 11:45 AM PRODUCTION ASSOCIATE Rheumatoid arthritis involving multiple joints Therapeutic drug monitoring C-REACTIVE PROTEIN Routine 09/22/2024 11:45 AM PRODUCTION ASSOCIATE Rheumatoid arthritis involving multiple joints Therapeutic drug monitoring PROTEIN ELECTROPHORESIS BLOOD Routine 09/22/2024 11:45 AM PRODUCTION ASSOCIATE Rheumatoid arthritis involving multiple joints Therapeutic drug monitoring COMPREHENSIVE METABOLIC PANEL Routine 09/22/2024 11:45 AM PRODUCTION ASSOCIATE Rheumatoid arthritis involving multiple joints Therapeutic drug monitoring CK BLOOD Routine 09/22/2024 11:45 AM PRODUCTION ASSOCIATE Rheumatoid arthritis involving multiple joints Therapeutic drug monitoring CBC W AUTO DIFFERENTIAL Routine 09/22/2024 11:45 AM PRODUCTION ASSOCIATE Rheumatoid arthritis involving multiple joints Therapeutic drug monitoring ALDOLASE Routine 09/22/2024 11:45 AM PRODUCTION ASSOCIATE Rheumatoid arthritis involving multiple joints Therapeutic drug monitoring XR WRIST RIGHT 2VW Routine 09/21/2024 4: 26 PM PRODUCTION ASSOCIATE Rheumatoid arthritis involving multiple joints Osteoarthritis of hand, unspecified laterality, unspecified osteoarthritis type XR WRIST LEFT 2VW Routine 09/21/2024 4:2 6 PM PRODUCTION ASSOCIATE Rheumatoid arthritis involving multiple joints Osteoarthritis of hand, unspecified laterality, unspecified osteoarthritis type XR HAND RIGHT 2VW Routine 09/21/2024 4:2 6 PM PRODUCTION ASSOCIATE Rheumatoid arthritis involving multiple joints Osteoarthritis of hand, unspecified laterality, unspecified osteoarthritis type XR HAND LEFT 2VW Routine 09/21/2024 4:26 PM PRODUCTION ASSOCIATE Rheumatoid arthritis involving multiple joints Osteoarthritis of hand, unspecified laterality, unspecified osteoarthritis type XR FOOT LEFT 2VW Routine 09/21/2024 4:26 PM PRODUCTION ASSOCIATE Rheumatoid arthritis involving multiple joints Osteoarthritis of hand, unspecified laterality, unspecified osteoarthritis type XR FOOT RIGHT 2VW Routine 09/21/2024 4:2 6 PM PRODUCTION ASSOCIATE Rheumatoid arthritis involving multiple joints Osteoarthritis of hand, unspecified laterality, unspecified osteoarthritis type HEPATITIS C ANTIBODY Routine 04/03/2023 12:16 PM CDT Seropositive rheumatoid arthritis Therapeutic drug monitoring Screening for tuberculosis nursing home current use of immunosuppressive drug Osteopenia, unspecified location from Last 3 Months or Most Recently Relevant to Health Maintenance Results * (ABNORMAL) C-REACTIVE PROTEIN (11/02/2024 1:58 PM PRODUCTION ASSOCIATE) Only the most recent of2 resultswithin the time period is included. C-Reactive Protein 21.1(H) <8.0 mg/L [facility] Comment: REPORT COMMENT: FASTING:YES Test Performed at: [facility] [id number] [place] [address] JENIFER SANCHEZ MD Blood BLOOD SPECIMEN / Unknown 11/02/2024 1:58 PM PRODUCTION ASSOCIATE 11/02/2024 1:58 PM PRODUCTION ASSOCIATE Christiano Castanon MD LAB - CHEMISTRY ORDE RABKERA Performing Organization Address [facility] Co de Phone Number [address] [address] * (ABNORMAL) ERYTHROCYTE SEDIMENTATION RATE (11/02/2024 1:58 PM PRODUCTION ASSOCIATE) Only the most recent of2 resultswithin the time period is included. Erythrocyte Sedimentation Rate Westergren 33(H) < OR = 30 mm/h [facility] Comment: Test Performed at: [facility] [address] [place] [address] JENIFER SANCHEZ MD Blood BLOOD SPECIMEN / Unknown 11/02/2024 1:58 PM PRODUCTION ASSOCIATE 11/02/2024 1:58 PM PRODUCTION ASSOCIATE Christiano Castanon MD LAB - HEMATOLOGY ORD ERADION Performing Organization Address [facility] Co de Phone Number [address] [address] * (ABNORMAL) CBC WITH DIFFERENTIAL (11/02/2024 1:58 PM PRODUCTION ASSOCIATE) Only the most recent of2 resultswithin the time period is included. White Blood Cell Count 8.8 3.8 - [...] 0.7 % [facility] Comment: Test Performed at: [facility] [address] [place] [address] JENIFER SANCHEZ MD Blood BLOOD SPECIMEN / Unknown 11/02/2024 1:58 PM PRODUCTION ASSOCIATE 11/02/2024 1:58 PM PRODUCTION ASSOCIATE Christiano Castanon MD LAB - HEMATOLOGY ORD ERABLES [facility] [address] [place] [address] * (ABNORMAL) COMPREHENSIVE METABOLIC PANEL (11/02/2024 1:58 PM PRODUCTION ASSOCIATE) Only the most recent of2 resultswithin the time period is included. Glucose [...] 29 U/L [facility] Comment: Test Performed at: [facility] [address] [place] [address] JENIFER SANCHEZ MD Blood BLOOD SPECIMEN / Unknown 11/02/2024 1:58 PM PRODUCTION ASSOCIATE 11/02/2024 1:58 PM PRODUCTION ASSOCIATE Christiano Castanon MD LAB - CHEMISTRY DIAN SOTO [facility] [address] [place] [address] * DERMATOPATHOLOGY (09/28/2024 1:58 PM PRODUCTION ASSOCIATE) Case Report Dermatopathology Report Case: [id number] Authorizing Provider: Gala Venegas MD Collected: 09/28/2024 01:58 PM Ordering Location: [facility] - Received: 09/29/2024 03:04 PM DermPath Lab Pathologist: Barbara Trejo MD Specimen: Skin, left leg 4:24 PM [facility] DERMATOPATHOLOGY LABORATORY Final Diagnosis Specimen A. SKIN, left leg: ULCER WITH SUPERFICIAL DERMAL NECROSIS AND DERMAL LYMPHOHISTIOCYTIC INFLAMMATION WITH NEUTROPHILS (L98.499) (see microscopic description and comment) 4:24 PM PRODUCTION ASSOCIATE DERMATOPATHOLOGY LABORATORY Clinical History Hx of RA on MTX; Neurophilic Dermatis/PN/Lymphom a 4:24 PM PRODUCTION ASSOCIATE DERMATOPATHOLOGY LABORATORY Gross Description Specimen A: Received is one formalin filled container labeled with the patient's name and designated left leg. The specimen consists of a punch biopsy measuring 4x4x5 mm. Jar 0. 4:24 PM PRODUCTION ASSOCIATE DERMATOPATHOLOGY LABORATORY Microscopic Description Specimen A. SKIN, [...] sampling. Clinicopathologic correlation is recommended. 4:24 PM PRODUCTION ASSOCIATE DERMATOPATHOLOGY LABORATORY Disclaimer An external and internal positive and negative controls are appropriate for the histochemical, immunohistochemical and immunofluorescence stain(s) in this case (if any), except where stated explicitly. The performance characteristics of the stain(s) cited in this report were developed and its performance characteristic determined by the Dermatopathology Laboratory at [facility], directed by Dr. Eusebio Harris. These tests need not be, and therefore are not, approved by the [place] Food and Drug Administration. The tests are used for clinical purposes. Billing Codes Specimen Charges Stain Charges 79731 1 [id number] 65053 09967 04065 48021 56576 1 1 1 1 1 1 5 4:24 PM PRODUCTION ASSOCIATE DERMATOPATHOLOGY LABORATORY Embedded Images 4:24 PM PRODUCTION ASSOCIATE DERMATOPATHOLOGY LABORATORY Pathology/Cytolo gy TISSUE SPECIMEN FROM SKIN / Unknown 09/28/2024 1:58 PM PRODUCTION ASSOCIATE 09/29/2024 3:04 PM PRODUCTION ASSOCIATE Gala Venegas MD LAB - PATHOLOGY/CYTO LOGY ORDERABLES DERMATOPATHOLOGY LABORATORY [facility] - Department of Dermatology [address], [address] [phone] * MRI Thoracic Spine Wo Contrast (09/25/2024 1:17 PM PRODUCTION ASSOCIATE) Anatomical Region Laterality Modality Chest Magnetic Resonan ce 09/25/2024 1:22 PM PRODUCTION ASSOCIATE Impressions 09/25/2024 2:07 PM PRODUCTION ASSOCIATE IMPRESSION: MRI brain: 1.No evidence of acute intracranial findings. MRI thoracic spine: 1.No high-grade spinal canal or high-grade neural foraminal stenosis at any level. 2.No cord compression. > Interpreting Provider: Umu Suarez MD on 09/25/2024 2:07 PM Narrative 09/25/2024 2:07 PM PRODUCTION ASSOCIATE PROCEDURE: MRI BRAIN WO CONTRAST, MRI THORACIC SPINE WO CONTRAST, DATE/TIME OF EXAM: 09/25/2024 1:17 PM, LOCATION [facility] INDICATION: R27.0: Ataxia M54.2: Neck pain ADDITIONAL [...] DATE/TIME OF EXAM: 09/25/2024 1:17 PM, LOCATION [facility] INDICATION: R27.0: Ataxia M54.2: Neck pain ADDITIONAL [...] T2 signal in the left cerebral peduncle, ([id number], image 9, nonspecific and could represent tiny [...] MRI Brain Wo Contrast (09/25/2024 1:16 PM PRODUCTION ASSOCIATE) Anatomical Region Laterality Modality Head Magnetic Resonan ce 09/25/2024 1:22 PM PRODUCTION ASSOCIATE Impressions 09/25/2024 2:07 PM PRODUCTION ASSOCIATE IMPRESSION: MRI brain: 1.No evidence of acute intracranial findings. MRI thoracic spine: 1.No high-grade spinal canal or high-grade neural foraminal stenosis at any level. 2.No cord compression. > Interpreting Provider: Umu Suarez MD on 09/25/2024 2:07 PM Narrative 09/25/2024 2:07 PM PRODUCTION ASSOCIATE PROCEDURE: MRI BRAIN WO CONTRAST, MRI THORACIC SPINE WO CONTRAST, DATE/TIME OF EXAM: 09/25/2024 1:17 PM, LOCATION [facility] INDICATION: R27.0: Ataxia M54.2: Neck pain ADDITIONAL [...] DATE/TIME OF EXAM: 09/25/2024 1:17 PM, LOCATION [facility] INDICATION: R27.0: Ataxia M54.2: Neck pain ADDITIONAL [...] T2 signal in the left cerebral peduncle, ([id number], image 9, nonspecific and could represent tiny [...] URINALYSIS W/MICROSCOPIC NO CULTURE (09/22/2024 11:45 AM PRODUCTION ASSOCIATE) Color UA YELLOW YELLOW [facility] Appearance CLEAR CLEAR [facility] Specific [place] UA 1.008 1.001 - 1.035 [facility] pH [...] SEEN /LPF [facility] Comment: Test Performed at: [email or web address] [place] [address] [place] [address] JENIFER SANCHEZ MD Granular Casts [facility] Casts UA [facility] Yeast [facility] Comments [facility] Note [facility] Comment: Test Performed at: [facility] [place] [address] [place], [place] [address] JENIFER SANCHEZ MD Urine URINE SPECIMEN OBTAINED BY CLEAN CATCH PROCEDURE / Unknown 09/22/2024 11:45 AM PRODUCTION ASSOCIATE 09/22/2024 11:45 AM PRODUCTION ASSOCIATE Christiano Castanon MD LAB - URINALYSIS ORD ERABLES Performing Organization Address [facility] Co de Phone Number [facility] [address] [place] [address] * ALDOLASE (09/22/2024 11:45 AM PRODUCTION ASSOCIATE) Aldolase 4.7 < OR = 8.1 U/L [facility] Comment: REPORT COMMENT: FASTING:YES Test Performed at: [facility] [address] [place] [address] JENIFER SANCHEZ MD Blood BLOOD SPECIMEN / Unknown 09/22/2024 11:45 AM PRODUCTION ASSOCIATE 09/22/2024 11:45 AM PRODUCTION ASSOCIATE Christiano Castanon MD LAB - CHEMISTRY DIAN OSTO Performing Organization Address [facility] Co de Phone Number [facility] [address] [place] [address] * CK BLOOD (09/22/2024 11:45 AM PRODUCTION ASSOCIATE) CK 29 29 - 143 U/L [facility] Comment: Test Performed at: [facility] [address] [place] [place] [address] JENIFER SANCHEZ MD Blood BLOOD SPECIMEN / Unknown 09/22/2024 11:45 AM PRODUCTION ASSOCIATE 09/22/2024 11:45 AM PRODUCTION ASSOCIATE Christiano Castanon MD LAB - CHEMISTRY DIAN SOTO Performing Organization Address [facility] Co de Phone Number [facility] [address] [place] [address] * (ABNORMAL) PROTEIN ELECTROPHORESIS BLOOD (09/22/2024 11:45 AM PRODUCTION ASSOCIATE) Protein Total 7.6 6.1 - 8.1 g/dL [facility] Albumin 3.2(L) 3.8 - 4.8 g/dL [facility] Alpha-1 Globulin 0.5(H) 0.2 - 0.3 g/dL [facility] Msknu-7-Utvsdcps 1.0(H) 0.5 - 0.9 g/dL [facility] Beta-1 Globulin g/dL 0.6 0.4 - 0.6 g/dL [facility] Beta-2 Globulin 0.7(H) 0.2 - 0.5 g/dL [facility] Gamma Globulin 1.6 0.8 - 1.7 g/dL [facility] Abnormal Protein Band [facility] Abnormal Protein Band 2 [facility] Abnormal Protein Band 3 [facility] Interpretation [facility] Comment: Hypoalbuminemia with an increase in ahroy-0-lzuorigmh, hndnv-0-ialimyddx or both, is consistent with an acute phase response. No restricted band (M-spike) seen. Test Performed at: [facility] [id number] [place] [address] JENIFER SANCHEZ MD Blood BLOOD SPECIMEN / Unknown 09/22/2024 11:45 AM PRODUCTION ASSOCIATE 09/22/2024 11:45 AM PRODUCTION ASSOCIATE Christiano Castanon MD LAB - CHEMISTRY DIAN [facility] Organization Address City/State/[facility] Co de Phone Number [facility] [address] [place] [address] * XR Foot Right 2Vw (09/21/2024 4:26 PM PRODUCTION ASSOCIATE) Anatomical Region Laterality Modality Ankle / Foot Digital Radiogra phy 09/22/2024 8:01 AM PRODUCTION ASSOCIATE Impressions 09/22/2024 8:20 AM PRODUCTION ASSOCIATE IMPRESSION: 1. Right hand: Palmer-neck deformity of the third digit with additional [...] 09/22/2024 8:20 AM Narrative 09/22/2024 8:20 AM PRODUCTION ASSOCIATE PROCEDURE: XR HAND RIGHT 2VW, XR WRIST [...] severe between the lunate and capitate with hkay-lh-okkm contact and generally moderate elsewhere. There are [...] severe between the lunate and capitate with keuu-ld-hbpt contact and generally moderate elsewhere. There aremultiple [...] otherwise mildly osteopenic. IMPRESSION: 1. Right hand: Palmer-neck deformity of the third digit with additional [...] XR Foot Left 2Vw (09/21/2024 4:26 PM PRODUCTION ASSOCIATE) Anatomical Region Laterality Modality Ankle / Foot Digital Radiogra phy 09/22/2024 8:01 AM PRODUCTION ASSOCIATE Impressions 09/22/2024 8:20 AM PRODUCTION ASSOCIATE IMPRESSION: 1. Right hand: Palmer-neck deformity of the third digit with additional [...] 09/22/2024 8:20 AM Narrative 09/22/2024 8:20 AM PRODUCTION ASSOCIATE PROCEDURE: XR HAND RIGHT 2VW, XR WRIST [...] severe between the lunate and capitate with pmsn-xk-orhx contact and generally moderate elsewhere. There are [...] severe between the lunate and capitate with iwap-ku-ulhv contact and generally moderate elsewhere. There aremultiple [...] otherwise mildly osteopenic. IMPRESSION: 1. Right hand: Palmer-neck deformity of the third digit with additional [...] XR Hand Right 2Vw (09/21/2024 4:26 PM PRODUCTION ASSOCIATE) Anatomical Region Laterality Modality Wrist / Hand Digital Radiogra phy 09/22/2024 8:01 AM PRODUCTION ASSOCIATE Impressions 09/22/2024 8:20 AM PRODUCTION ASSOCIATE IMPRESSION: 1. Right hand: Palmer-neck deformity of the third digit with additional [...] 09/22/2024 8:20 AM Narrative 09/22/2024 8:20 AM PRODUCTION ASSOCIATE PROCEDURE: XR HAND RIGHT 2VW, XR WRIST [...] severe between the lunate and capitate with tjad-vg-sexi contact and generally moderate elsewhere. There are [...] severe between the lunate and capitate with xaoq-ur-sclg contact and generally moderate elsewhere. There aremultiple [...] otherwise mildly osteopenic. IMPRESSION: 1. Right hand: Palmer-neck deformity of the third digit with additional [...] XR Hand Left 2Vw (09/21/2024 4:26 PM PRODUCTION ASSOCIATE) Anatomical Region Laterality Modality Wrist / Hand Digital Radiogra phy 09/22/2024 8:01 AM PRODUCTION ASSOCIATE Impressions 09/22/2024 8:20 AM PRODUCTION ASSOCIATE IMPRESSION: 1. Right hand: Palmer-neck deformity of the third digit with additional [...] 09/22/2024 8:20 AM Narrative 09/22/2024 8:20 AM PRODUCTION ASSOCIATE PROCEDURE: XR HAND RIGHT 2VW, XR WRIST [...] severe between the lunate and capitate with nsbj-rl-fldu contact and generally moderate elsewhere. There are [...] severe between the lunate and capitate with hlnq-wj-wtnv contact and generally moderate elsewhere. There aremultiple [...] otherwise mildly osteopenic. IMPRESSION: 1. Right hand: Palmer-neck deformity of the third digit with additional [...] Hanley MD on 09/22/2024 8:20 AM Christiano Catsanon MD DIAGNOSTIC IMAGING O RDERABLES * XR Wrist Right 2Vw (09/21/2024 4:26 PM PRODUCTION ASSOCIATE) Anatomical Region Laterality Modality Wrist / Hand Digital Radiogra phy 09/22/2024 8:01 AM PRODUCTION ASSOCIATE Impressions 09/22/2024 8:20 AM PRODUCTION ASSOCIATE IMPRESSION: 1. Right hand: Palmer-neck deformity of the third digit with additional [...] 09/22/2024 8:20 AM Narrative 09/22/2024 8:20 AM PRODUCTION ASSOCIATE PROCEDURE: XR HAND RIGHT 2VW, XR WRIST RIGHT 2VW, XR WRIST LEFT 2VW, XR HAND LEFT 2VW, XR FOOT LEFT 2VW, XR FOOT RIGHT 2VW DATE/TIME OF EXAM: 09/21/2024 4:26 PM CLINICAL INFORMATION: None relevant/not provided if blank. Indication: M06.9: Rheumatoid arthritis involving multiple joints ([facility]) M19.049: Osteoarthritis of hand, unspecified laterality, unspecified [...] severe between the lunate and capitate with nypo-jz-bowd contact and generally moderate elsewhere. There are [...] severe between the lunate and capitate with wvfo-dn-kzke contact and generally moderate elsewhere. There aremultiple [...] otherwise mildly osteopenic. IMPRESSION: 1. Right hand: Palmer-neck deformity of the third digit with additional [...] XR Wrist Left 2Vw (09/21/2024 4:26 PM PRODUCTION ASSOCIATE) Anatomical Region Laterality Modality Wrist / Hand Digital Radiogra phy 09/22/2024 8:01 AM PRODUCTION ASSOCIATE Impressions 09/22/2024 8:20 AM PRODUCTION ASSOCIATE IMPRESSION: 1. Right hand: Palmer-neck deformity of the third digit with additional [...] 09/22/2024 8:20 AM Narrative 09/22/2024 8:20 AM PRODUCTION ASSOCIATE PROCEDURE: XR HAND RIGHT 2VW, XR WRIST [...] severe between the lunate and capitate with qvmb-aw-kmyq contact and generally moderate elsewhere. There are [...] severe between the lunate and capitate with hwvx-df-zacf contact and generally moderate elsewhere. There aremultiple [...] otherwise mildly osteopenic. IMPRESSION: 1. Right hand: Palmer-neck deformity of the third digit with additional [...] Castanon MD DIAGNOSTIC IMAGING O RDERABLES * HEPATITIS C ANTIBODY (04/03/2023 12:16 PM CDT) Hepatitis C Antibody Non-react marcelo Non-reac tive 04/03/2023 1:17 PM CDT [facility] Comment:Hepatitis C Antibody screen indicates no [...] Castanon MD LAB - CHEMISTRY DIAN SOTO [facility] [address] [place] [address], [facility] [phone] from Last 3 Months or Most Recently Relevant to Health Maintenance Care Teams Boiler Water Tester Relationship Specialty Start Date End Date Jaden Carter MD [facility] [place] [address] [place], [place] [id number] PCP - General 04/13/12
--- OUTSIDE RECORDS SUMMARY | 2024-12-17 06:38 | XMS_ITS | Encounter Summary ---
Author Organization [facility] Address [address] [place] [address] Care Team Providers Care Finished Yarn Examiner Name Role Phone Jaden Carter MD Primary Care Provider [phone] Reason for Visit * Reason Onset Date Comments MEDICATION REFILL 12/15/2023 Encounter Details Date Type Department Care Team (Late st Contact Info) Description 12/15/2023 Refill [facility] - Rheumatology [address] [place] [phone] Kristopher Bowman MD [facility] [place] [phone] MEDICATION REFILL Social History Tobacco [...] Description 06/06/2025 1:00 PM CDT Office Visit [facility] - Rheumatology [address] [place] [address], [facility] [place] [phone] Jasbir Sofia MD [address] [place] [address] [place] [phone] documented as of this encounter Visit Diagnoses Diagnosis Seropositive rheumatoid arthritis (HCC) Rheumatoid arthritis documented in this encounter Care Teams Finished Yarn Examiner Relationship Specialty Start Date End Date Jaden Carter MD [address] [place] [id number] PCP - General 04/13/12 documented as of this encounter
== END 2024-12-17 06:36 | disposition home or self-care (01) ==
PROVIDERS: PCP Physician Assistant Medical; Visit Provider Surgery
DX: L02.412 Cutaneous abscess of left axilla (principal); M25.412 Effusion, left shoulder; M19.012 Primary osteoarthritis, left shoulder; S46.812A Strain of other muscles, fascia and tendons at shoulder and upper arm level, left arm, initial encounter; X58.XXXA Exposure to other specified factors, initial encounter
CPT/HCPCS: 73223; A9579